=== PATIENT | female | born 1950 | race Caucasian/White ===

== ENCOUNTER 2016-06-25 12:15 | Observation (INO) | payer MEDICARE, BC ==
[~2016-06-25] VITALS: Ht 160 cm; Wt 77.0 kg
--- NOTE | ~2016-06-25 | HEMODYNAMI ---
PATIENT:FORTUNATO JONES MEDICAL RECORD: [id number] : 52 [id number] ADMISSION DATE: 06/25/16 Generatedon:06/26/201610:19 Patient name: FORTUNATO JONES Patient #: [id number] SSN: : 1950 Date of study: 06/26/2016 Page: Of Hemodynamic Procedure Report Patient Data Patient Demographics Procedure consent was obtained First Name: FORTUNATO Gender: Female Last Name: ROBERT : 1950 Middle Initial: MARIA L Age: 66 year(s) Patient #: [id number] Race: Additional ID: [id number] Contact details [address]: [address] [place] [address] State: [place] City: [place] Zip code: [address] Past Medical History Allergies Allergen Reaction Date Comments Reported Other allergy 06/26/2016 tetnus, ambien, toxoid Admission Admission Data Admission Date: 06/25/2016 Admission Time: 14:55 Room #: D.2125 Lab Results Lab Result Date: 06/26/2016 Lab Result Time: 0:00 Biochemistry Name Units Result Min Max Creatinine mg/dl 0.8 --(-*--)-- 0.6 1.3 CBC Name Units Result Min Max Hemoglobin g/dl 13.9 --(*---)-- 13.5 17.5 Procedure Procedure Types Cath Procedure Diagnostic Procedure LHC LHC w/Coronaries w/Grafts Procedure Description Procedure Date Procedure Date: 06/26/2016 Procedure Start Time: 9:43 Procedure End Time: 10:19 Procedure Staff Name Function Brayan Almodovar MD Performing Physician Dulce Espinoza RT Scrub Mami Vázquez RN Nurse Madelaine Mooney RT Monitor Procedure Data Cath Procedure Fluoroscopy Diagnostic fluoroscopy Total fluoroscopy Time: 11 time: 11 min min Diagnostic fluoroscopy Total fluoroscopy dose: 995 dose: 995 mGy mGy Contrast Material Contrast Material Type Amount (ml) Isovue 300 113 Entry Location Entry Primary Successful Side Size Upsize Upsize Entry Closure Succes sful Closure Location (Fr) 1 (Fr) 2 (Fr) Remarks Device Remarks Femoral Left 5 Fr 6 Fr artery Short Estimated blood loss: 10 ml Diagnostic catheters Device Type Used For End Catheter Placement Cordis 5Fr JL 4.0 Left Coronary Catheter (MP) Angiography Cordis 5Fr 3DRC Catheter Internal mammary (MP) arteriography Cordis 5Fr 3DRC Catheter SVG Angiography (MP) Cordis 5Fr 3DRC Catheter Right Coronary (MP) Angiography Cordis 5Fr Pigtail LV Angiography Catheter (MP) Procedure Complications No complications Procedure Medications Medication Administration Route Dosage Oxygen NC 2 l/min Lidocaine 2% added to field 20 0.9% NaCl I.V. 100 ml/hr Heparin Flush Bag added to field 2 bags (1000units/500ml NS) Versed I.V. 1 mg Fentanyl I.V. 50 mcg Versed I.V. 1 mg Fentanyl I.V. 50 mcg Versed I.V. 1 mg Fentanyl I.V. 50 mcg Heparin Bolus I.V. 5000 units Integrilin (Bolus I.V. 6.8 ml 2mg/ml) Versed I.V. 1 mg Fentanyl I.V. 50 mcg unlisted medication P.O. 20 mg Hemodynamics Rest HGB: 13.9 (g/dl) Heart Rate: 82 (bpm) Pressure Samples Time Site Value (mmHg) Purpose Heart Use Rate(bpm) 9:53 LV 139/15,20 EDP 82 9:54 AO 139/63(97) Pullback 89 9:54 LV 142/17,27 Pullback 89 Gradients Valve Time Site 1 Site 2 Mean SEP/DFP Peak To Heart Use (mmHg) (sec/min) Peak Rate (mmHg) (bpm) Aortic 9:54 LV AO 8 6 3 89 142/17,27 139/63(97) Calculations Valve P-P Mean Valve Index Valve Source Name Gradient Area Flow (cm2) Aortic 3 8 3 8 Snapshots Pre Cath Intra NCS Post Cath Vital Signs Time Heart Resp SPO2 etCO2 QG5bibz NIBP (mmHg) Rhythm Pain Sedation Rate (ipm) (%) (mmHg) (mmHg) Status Level (bpm) 9:29:45 71 15 97 0 0 147/89(123) NSR 0 (11) 10(A) , No pain 9:34:01 75 17 96 0 0 132/82(116) NSR 0 (11) 10(A) , No pain 9:38:11 83 15 98 0 0 132/85(126) NSR 0 (11) 10(A) , No pain 9:42:19 84 16 98 0 0 142/85(111) NSR 0 (11) 10(A) , No pain 9:46:35 82 17 96 0 0 131/78(114) NSR 0 (11) 9(A) , No pain 9:50:45 91 17 97 0 0 125/79(100) NSR 0 (11) 9(A) , No pain 9:54:53 92 18 97 0 0 126/79(99) NSR 0 (11) 9(A) , No pain 9:59:05 93 16 97 0 0 126/73(91) NSR 0 (11) 9(A) , No pain 10:03:14 91 16 97 0 0 126/71(106) NSR 0 (11) 9(A) , No pain 10:07:24 91 18 97 0 0 110/76(104) NSR 0 (11) 9(A) , No pain 10:11:26 94 17 97 0 0 129/83(102) NSR 0 (11) 9(A) , No pain 10:15:36 94 16 97 0 0 122/84(105) NSR 0 (11) 10(A) , No pain Medications Time Medication Route Dose Verified Delivered Reason Notes Effectiveness by by 9:32:29 Oxygen NC 2 Brayan Buffie used for l/min [facility]. Arpan blue MD 9:32:37 Lidocaine 2% added 20ml Brayan Brayan for local to vial [facility] anesthetic field MD CURRY 9:32:52 0.9% NaCl I.V. 100 Brayan Buffie Per physician ml/hr St. Arpan Vázquez RN, MD 9:39:07 Heparin Flush added 2 Brayan Brayan used for [facility] (1000units/500ml field MD CURRY NS) 9:39:14 Versed I.V. 1 mg Brayan Riyaie for sedation St. Arpan Vázquez RN, MD 9:39:37 Fentanyl I.V. 50 Brayan Buffie for sedation mcg [address] Arpan Vázquez RN, MD 9:43:31 Versed I.V. 1 mg Brayan Buffie for sedation St. Arpan Vázquez RN, MD 9:43:35 Fentanyl I.V. 50 Brayan Ritterie for sedation mcg [facility]. Arpan Vázquez RN, MD 9:46:42 Versed I.V. 1 mg Brayan Ritterie for sedation St. Arpan Vázquez RN, MD 9:46:47 Fentanyl I.V. 50 Brayan Ritterie for sedation mcg [facility]. Arpan Vázquez RN, MD 9:54:22 Heparin Bolus I.V. 5000 Brayan Ritterie for verifi ed units [facility]. Arpan Vázquez RN anticoagulation with dr MD dubois 9:58:01 Integrilin I.V. 6.8 Brayan Ritterie for (Bolus 2mg/ml) ml St. Arpan Vázquez RN antiplatelet MD therapy 10:02:15 Versed I.V. 1 mg Brayan Ritterie for sedation St. Arpan Vázquez RN, MD 10:02:19 Fentanyl I.V. 50 Brayan Ritterie for sedation mcg [facility]. Arpan Vázquez RN, MD 10:17:49 Xarelto P.O. 20 mg Brayan Bolaños for St. Arpan Vázquez RN anticoagulation MD Procedure Log Time Note 9:00:34 Dulce Espinoza RT(R) sent for patient. Start room use. 9:22:16 Diagnostic Cath Status : Elective 9:22:41 Time tracking: Regular hours 9:22:46 Plan of Care:Hemodynamics will remain stable., Cardiac rhythm will remain stable., Comfort level will be maintained., Respiratory function will remain adequate., Patient/ family verbilizes understanding of procedure., Procedure tolerated without complication., Recovers from procedure without complications.. 9:22:52 Patient received from Med II to CCL 1 Alert and oriented. Tansferred to table in Supine position. 9:22:53 Warm blankets applied, and manny hugger turned on for patient comfort. 9:22:53 Correct patient and procedure confirmed by team. 9:22:55 Signed procedure consent form obtained from patient. 9:22:56 ECG and BP/O2 sat monitors applied to patient. 9:28:41 Vital chart was started 9:28:42 Full Disclosure recording started 9:29:34 Rhythm: sinus rhythm 9:32:29 Oxygen 2 l/min NC was given by Mami Vázquez RN; used for procedure; 9:32:37 Lidocaine 2% 20ml vial added to field was given by Brayan Almodovar MD; for local anesthetic; 9:32:52 0.9% NaCl 100 ml/hr I.V. was given by Mami Vázquez RN; Per physician; 9:33:33 H&P Date Dictated: 06/26/2016 New H&P dictated by physician.. 9:33:34 Pre-procedure instructions explained to patient. 9:33:35 Pre-op teaching completed and patient verbalized understanding. 9:33:36 Family in waiting room. 9:33:58 Dictation# [id number] 9:34:01 Patient NPO since Midnight. 9:34:26 Patient allergic to Other allergytetnus, ambien, toxoid 9:34:33 Is the patient allergic to Iodine/contrast media? No. 9:34:34 Is patient on blood thinner?Yes 9:34:37 ACC The patient was administered the following blood thiners within the last 24 hours: ACCPlavix 9:34:43 Patient diabetic? No. 9:34:53 Previous problem with sedation/anesthesia? No ? 9:34:55 Snore? Yes 9:34:57 Sleep apnea? No 9:34:58 Deviated septum? No 9:34:58 Opens mouth fully? Yes 9:34:59 Sticks out tongue? Yes 9:35:01 Airway obstruction? No ? 9:35:04 Dentures? Yes IN 9:35:09 Pre procedure: left dorsailis pedis pulse 2+ Normal; easily identifiable; not easily obliterated 9:35:12 Patient pain scale 0/10 ?. 9:35:25 IV patent on arrival in left forearm with 0.9% NaCl at [facility]. 9:35:58 Lab Result : Creatinine 0.8 mg/dl 9:35:58 Lab Result : Hemoglobin 13.9 g/dl 9:36:01 Lab results completed and on chart. 9:36:06 Left groin area was prepped with chlora-prep and draped in sterile fashion 9:36:07 Alarms reviewed by R. N. 9:36:08 Sharps counted by scrub and verified by R.N. 9:36:13 Use device set Femoral Dx 9:36:14 Acist Syringe opened to sterile field. 9:36:15 Bag Decanter opened to sterile field. 9:36:15 Cardinal Cath Pack opened to sterile field. 9:36:16 Terumo 5Fr [place] Sheath opened to sterile field. 9:36:16 St Dominic 260cm J .035 wire opened to sterile field. 9:36:17 Acist Hand Control opened to sterile field. 9:36:18 Acist Manifold opened to sterile field. 9:36:18 Cordis Infinity 5Fr Multipack catheter opened to sterile field. 9:36:19 Tegaderm 4 x 4 opened to sterile field. 9:36:26 Final Timeout: patient, procedure, and site verified with staff and physician. All members of the team are in agreement. 9:36:28 Left groin site verified by team. 9:36:31 Physical assessment completed. ASA score P 2 - A patient with mild systemic disease as per Brayan Almodovar MD. 9:36:33 Sedation plan: IV Moderate Sedation Versed, Fentanyl 9:39:07 Heparin Flush Bag (1000units/500ml NS) 2 bags added to field was given by Brayan Almodovar MD; used for procedure; 9:39:14 Versed 1 mg I.V. was given by Mami Vázquez RN; for sedation; 9:39:37 Fentanyl 50 mcg I.V. was given by Mami Vázquez RN; for sedation; 9:43:04 Zero performed for pressure channel P1 9:43:11 Zero performed for pressure channel P1 9:43:17 Procedure started. 9:43:21 Local anesthetic to left femerol artery with Lidocaine 2% by Brayan Almodovar MD.INITIAL ACCESS ONLY 9:43:31 Versed 1 mg I.V. was given by Mami Vázquez RN; for sedation; 9:43:35 Fentanyl 50 mcg I.V. was given by Mami Vázquez RN; for sedation; 9:44:01 A 5 Fr sheath was inserted into the Left Femoral artery 9:45:42 A Cordis 5Fr JL 4.0 Catheter (MP) was advanced over the wire and used for Left Coronary Angiography. 9:46:42 Versed 1 mg I.V. was given by Mami Vázquez RN; for sedation; 9:46:47 Fentanyl 50 mcg I.V. was given by Mami Vázquez RN; for sedation; 9:48:30 Catheter removed. 9:48:51 A Cordis 5Fr 3DRC Catheter (MP) was advanced over the wire and used for Internal mammary arteriography. Not grafted. 9:51:16 A Cordis 5Fr 3DRC Catheter (MP) was advanced over the wire and used for SVG Angiography.To Circ 9:51:30 A Cordis 5Fr 3DRC Catheter (MP) was advanced over the wire and used for Right Coronary Angiography. 9:52:35 Catheter removed. 9:52:40 A Cordis 5Fr Pigtail Catheter (MP) was advanced over the wire and used for LV Angiography. 9:52:58 Medtronic Launcher 6Fr JR 4.0 guide catheter opened to sterile field. 9:53:20 Garcia [place] 300cm 0.014 guide wire opened to sterile field. 9:53:21 Awdio BasixCompak Inflation Kit opened to sterile field. 9:54:10 Catheter removed. 9:54:22 Heparin Bolus 5000 units I.V. was given by Mami Vázquez RN; for anticoagulation; verified with dr dubois 9:54:31 Sheath upsized to a 6 Fr Short. 9:56:01 6 Fr JR 4.0 guide catheter was inserted over the wire 9:57:24 [place] wire advanced. 9:58:01 Integrilin (Bolus 2mg/ml) 6.8 ml I.V. was given by Mami Vázquez RN; for antiplatelet therapy; 10:00:59 Wire removed. unable to cross lesion. 10:01:09 Garcia Whisper J 300cm 0.014 guide wire opened to sterile field. 10:02:15 Versed 1 mg I.V. was given by Mami Vázquez RN; for sedation; 10:02:19 Fentanyl 50 mcg I.V. was given by Mami Vázquez RN; for sedation; 10:03:57 The NC Emerge OTW 4.5 x 12 balloon was advanced and then removed because of failure to cross lesion 10:06:33 Garcia Whisper J 300cm 0.014 guide wire opened to sterile field. 10:06:51 2nd Whisper wire advanced. 10:09:44 The [place] Rapid Diagnostek [place] 3.0 X 12 balloon was advanced and then removed because 10:09:56 Wire removed. 10:09:57 Guide catheter removed. 10:10:07 Cordis 6Fr Exoseal opened to sterile field. 10:10:10 Procedure ended.(Physican Out) 10:10:41 Fluoroscopy time 11.00 minutes. 10:10:46 Flurop Dose total: 995 10:10:46 Fluoroscopy dose: 995 mGy 10:10:51 Contrast amount:Isovue 300 113ml. 10:10:53 Sharps counted by scrub and verified by R.N. 10:10:54 Insertion/operative site no bleeding no hematoma. 10:10:57 Post-op/insertion site Left Femoral artery dressed using a 4 x 4 and Tegaderm. 10:11:03 Post left femerol artery:stable, clean and dry 10:11:04 Post Procedure Pulses reassessed and unchanged 10:11:08 Post-procedure physical assessment completed. ASA score P 2 - A patient with mild systemic disease as per Brayan Almodovar MD. 10:11:10 Post procedure rhythm: unchanged. 10:11:13 Estimated blood loss: 10 ml 10:11:15 Post procedure instruction explained to patient.Patient verbalizes understanding. 10:11:15 Patient needs reinforcement of post procedure teaching. 10:11:26 Procedure type changed to Cath procedure, Diagnostic procedure, LHC, LHC w/Coronaries w/Grafts 10:11:32 Procedure Complication : No complications 10:11:35 See physician's report for complete and final results. 10:12:12 Terumo 6Fr [place] Sheath opened to sterile field. 10:12:30 Procedure and supply charges have been captured, reviewed, submitted and are correct. 10:17:49 Xarelto 20 mg P.O. was given by Mami Vázquez RN; for anticoagulation; 10:18:54 Vital chart was stopped 10:18:58 Report given to PCU. 10:19:02 Patient transfered to PCU with Bed. 10:19:04 Procedure ended. 10:19:04 Full Disclosure recording stopped 10:19:27 End room use (Document Last) Intervention Summary Intervention Notes Time ActionType Lesion and Equipment Action# Pressure Duration Attributes Used 10:03:57 Discard NC Emerge Balloon OTW 4.5 x 12 balloon 10:09:44 Discard [place] Balloon Sci [place] 3.0 X 12 balloon Device Usage Item Name Manufacture Quantity Catalog Number Hospital Part Current Mini mal Lot# / Charge Number Stock Stock Serial# Code Acist Acist 1 02764 516451 664444 571674 20 Pug Pharm Bag Microtek 1 2002S 055035 61875 100454 5 Dec[employer] Cardinal Cardinal 1 [id number] 269245 65782 156021 5 Cath Pack Health Terumo 5Fr Terumo 1 [id number] 432796 921737 062436 [address] St Dominic 1 527316 250392 569392 576452 30 260cm J .035 wire Acist Hand Acist 1 79546 731547 882102 372442 5 Control Medical Systems Inc Acist Acist 1 20480 348915 911792 979241 5 Manifold Medical Systems Inc Cordis Cardinal 1 [id number] 965572 67460 611961 30 Infinity Health 5Fr Multipack catheter Tegaderm 4 3M 1 1626W 350565 595797 866173 5 x 4 Cordis 5Fr Cardinal 1 710644 5 JL 4.0 Health Catheter (MP) Cordis 5Fr Cardinal 1 971954 5 3DRC Health Catheter (MP) Cordis 5Fr Cardinal 1 442652 5 Pigtail Health Catheter (MP) Medtronic Medtronic 1 [id number] 588592 98260 685873 1 Launcher 6Fr JR 4.0 guide catheter Garcia Garcia 1 [id number] 829281 208519 852343 1 [place] Vascular 300cm 0.014 guide wire Merit Merit 1 QC1195 327081 243488 395197 15 BasixCompak Medical Inflation Kit Garcia Garcia 2 [id number] 468096 918422 480004 5 Whisper J Vascular 300cm 0.014 guide wire NC Emerge [place] 1 [id number] 872062 107073 651448 5 [id number] OTW 4.5 x Scientific 12 balloon [place] Sci [place] 1 [id number] 135254 915084 455504 1 [id number] Augusta Scientific 3.0 X 12 balloon Cordis 6Fr Cardinal 1 EX600 220989 558474 665827 10 Exoseal Health Terumo 6Fr Terumo 1 [id number] 165949 644806 762752 40 [place] Sheath Signature Audit Jerome Stage Time Signature Unsigned Intra-Procedure 06/26/2016 Madelaine 10:19:47 AM Counts RT(R) Signatures Monitor : Madelaine Signature : Counts RT Date : Time : [address] [address]
[~2016-06-25 12:15] MED LIST: ASPIRIN325 MG PO; CARAFATE1 G PO; EFFIENT10 MG PO; FISH OIL 1,0001 CA1 PO; IMDUR60 MG PO; MOBIC7.5 MG PO; NEXIUM40 MG PO; PREDNISONE5 MG PO; PRILOSEC20 MG PO; RANEXA500 MG PO; ZANAFLEX4 MG PO
[2016-06-25 12:46] LABS: BASOPHILS 0.4 % (0.0-2.0); EOSINOPHILS 6.2 % (0-7); HEMATOCRIT 42.4 % (36.0-48.0); HEMOGLOBIN 14.2 g/dL (12-16); IMMATURE GRANULOCYTES 0.1 % (0-5); MCH 32.2 pg (26.0-34.0); MCHC 33.5 g/dL (31.0-37.0); MCV 96.1 fL (80.0-100.0); MEAN PLATELET VOLUME 9.1 fL (7.4-10.4); MONOCYTES 8.1 % (2-11); NEUTROPHILS 47.2 % (40-80); RBC 4.41 10x6/uL (4.00-5.40); RDW 14.5 % (11.5-14.5); WBC 6.8 10x3/uL (4.8-10.8)
[2016-06-25 12:53] LABS: PLATELET COUNT 285 10x3/uL (130-400)
[2016-06-25 13:03] LABS: ALBUMIN 3.8 g/dL (3.4-5.0); ALKALINE PHOSPHATASE 102 U/L (46-116); ALT (SGPT) 36 U/L (10-68); BILIRUBIN - TOTAL 0.41 mg/dL (0.2-1.3); CALC OSMOLALITY 277 mosm/kg (275-300); CARBON DIOXIDE 31.3 mmol/L (21.0-32.0); CHLORIDE - SERUM 102 mmol/L (98-107); CREATININE - SERUM 0.8 mg/dL (0.6-1.3); GLUCOSE 105 mg/dL (74-106); POTASSIUM - SERUM 3.9 mmol/L (3.5-5.1); PROTEIN - SERUM 7.2 g/dL (6.4-8.2); SODIUM 140 mmol/L (136-145); UREA NITROGEN 11 mg/dL (7-18); eGFR NON AFRICAN AMERICAN 76 mL/min (90-120)
[2016-06-25 13:13] LABS: CHOL - HDL RATIO 2.8 ratio (2.3-4.1); CHOLESTEROL, TOTAL 146 mg/dL (0-200); CKMB 0.7 U/L (0.0-3.6); CREATINE KINASE 80 UL (21-215); HDL CHOLESTEROL 53 mg/dL (32-96); LDL CHOLESTEROL 64 mg/dL (0-100); LDL-HDL RATIO 1.2 ratio (1.5-3.5); TRIGLYCERIDE 149 mg/dL (30-200)
[2016-06-25 13:14] LABS: TROPONIN-I < 0.017 ng/mL (0.000-0.060)
[2016-06-25 15:56] VITALS: Ht 160 cm; Wt 77.0 kg
--- NOTE | 2016-06-25 15:56 | NUR ---
RECEIVED PT TO ROOM 2124 VIA W/C IN STABLE CONDITION AAOX4 UP AD OMKAR DENIES ANY PAIN AT THIS TIME NAD NOTED
[2016-06-25] MEDS ORDERED: BAYER CHEWABLE81 MG PO (16:17)
[2016-06-25] MEDS ORDERED: LYRICA50 MG PO (16:19)
[2016-06-25] MEDS ORDERED: ISOSORBIDE MONO60 M1 PO (16:19)
[2016-06-25] MEDS ORDERED: PROVENTIL HFA6.7 GM INH (16:20)
[2016-06-25] MEDS ORDERED: LIPITOR40 MG PO (16:21)
[2016-06-25] MEDS ORDERED: NITROMIST8.5 GM SL (16:26)
[2016-06-25 19:48] VITALS: BP 126/76
--- NOTE | 2016-06-25 20:00 | NUR ---
PT RESTING IN BED. ALERT/ORIENTED. SR PER TELEMETRY. O2 @ 2L/NC AVAILABLE, BUT PT CURRENTLY ON ROOM AIR. REVIEWED PLAN OF CARE. CALL LIGHT IN REACH. PT PLANS TO WALK THE HALLWAY UNTIL SHE DOES NOT FEEL TIRED.
--- NOTE | 2016-06-25 22:07 | NUR ---
HS MEDS HAVE BEEN GIVEN. NO C/O CHEST PAIN OR DISCOMFORT. SR PER TELEMETRY. PT WALKING IN THE HALLWAY.
[2016-06-26 00:47] VITALS: BP 117/51
--- NOTE | 2016-06-26 03:04 | NUR ---
SR PER TELEMETRY. NO REPORTS OF PAIN OR DISCOMFORT. 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
[2016-06-26 03:41] VITALS: BP 122/77
--- NOTE | 2016-06-26 07:18 | NUR ---
PT SITTING UP IN BED DENEIS NEEDS WILL CONT TO MONITOR.
[2016-06-26 08:16] VITALS: BP 146/79
[2016-06-26 09:17] LABS: BASOPHILS 0.5 % (0.0-2.0); EOSINOPHILS 7.5 % (0-7); HEMATOCRIT 41.8 % (36.0-48.0); HEMOGLOBIN 13.9 g/dL (12-16); IMMATURE GRANULOCYTES 0.1 % (0-5); LYMPHOCYTES 39.9 % (15-50); MCH 32.2 pg (26.0-34.0); MCHC 33.3 g/dL (31.0-37.0); MCV 96.8 fL (80.0-100.0); MEAN PLATELET VOLUME 9.2 fL (7.4-10.4); MONOCYTES 8.5 % (2-11); NEUTROPHILS 43.5 % (40-80); PLATELET COUNT 276 10x3/uL (130-400); RBC 4.32 10x6/uL (4.00-5.40); RDW 14.7 % (11.5-14.5); WBC 7.3 10x3/uL (4.8-10.8)
[2016-06-26 09:21] LABS: CALC OSMOLALITY 280 mosm/kg (275-300); CHLORIDE - SERUM 105 mmol/L (98-107); CREATININE - SERUM 0.8 mg/dL (0.6-1.3); GLUCOSE 104 mg/dL (74-106); POTASSIUM - SERUM 4.2 mmol/L (3.5-5.1); SODIUM 141 mmol/L (136-145); UREA NITROGEN 13 mg/dL (7-18); eGFR NON AFRICAN AMERICAN 76 mL/min (90-120)
--- NOTE | 2016-06-26 10:36 | NUR ---
PT BACK FROM FLOWER SHOP MANAGER. PT SLEEPY BUT ALERT AND ORIENTED. LEFT GROIN SITE WNL DRESSING CDI. VS WNL. AT BEDSIDE. TELE BACK ON. PT FLAT FOR 4 HOURS.
[2016-06-26] MEDS ORDERED: XARELTO20 MG PO (11:53)
[2016-06-26 12:21] VITALS: BP 111/64
--- NOTE | 2016-06-26 12:26 | NUR ---
PT VS STILL WNL. PT L GROIN SITE STILL WNL WILL CONT TO MONITOR.
--- NOTE | 2016-06-26 13:07 | NUR ---
PT SITE STILL WNL VS STILL WNL. PT STILL LAYING FLAT. WILL CONT TO MONITOR.
--- NOTE | 2016-06-26 13:55 | NUR ---
WENT OVER DC PAPERWORK WITH PT PT VERBALIZES UNDERSTANDING. DC PIV WITH CATHETER TIP INTACT. DC TELE. PT STILL LAYING FLAT UNTIL BEDREST UP.
--- NOTE | 2016-06-26 14:28 | NUR ---
PT BEDREST HAS COMPLETED. LEFT GROIN STILL WNL. PT VS STILL WNL. DC HOME. PRODUCT INTRODUCTION MANAGER WHEELED PT OUT
--- NOTE | 2016-06-28 09:52 | OP ---
PATIENT NAME: FORTUNATO JONES MEDICAL RECORD: [id number] :52 LOCATION:D.M2 D.2125 ADMISSION DATE:06/25/16 SURGEON: SRINIVASA RODRÍGUEZ MD DATE OF OPERATION: 06/26/2016 PROCEDURE: Left heart catheterization, selective coronary angiography, left femoral artery approach. CATHETERS: A 5-Swedish sheath, 5/4 left and right Jose, 5/4 pig. We then proceeded to a possible intervention after the procedure was finished. FINDINGS: Left ventriculography in 30-degree OBRIEN view: Normal wall motion and normal systolic function. CORONARY ANATOMY: Left main: Left main is free of disease. LAD: medium sized LAD that did not quite reach the apex. This has previously placed stents that were patent. Small septal branch that has an ostial stenosis of 80%. CIRCUMFLEX: Totally occluded. RIGHT CORONARY ARTERY: Rudimentary, free of disease. SAPHENOUS VEIN GRAFT TO THE CIRCUMFLEX: This is patent and fills a large left circumflex system, the previously placed stent do bypass itself. This appears to be somewhat tapered towards the distal end. With a questionable thrombus formation, we placed a Avilla XT and a alyssa wire and a second Avilla XT to the stent and then inflated up towards the questionable thrombus. At this point in time, the patient was given heparin and Integrilin. Repeat ____ showed some small resolution of thrombus, then the procedure terminated. The patient had the sheath was closed with ExoSeal device. We will continue Xarelto for 4-6 weeks. We could consider a repeat study to make sure resolution of thrombus at that time. TRANSINT:[id number] Voice Confirmation ID: [id number] DOCUMENT ID: [id number] SRINIVASA RODRÍGUEZ MD at 0952 CC: [id number] DICTATION DATE: 06/26/16 1017 PIPE RACKER: 06/26/16 1522 DIS IN 06/26/16 [place] [id number] [place] [id number]
--- NOTE | 2016-06-28 09:52 | HP ---
PATIENT: FORTUNATO JONES MEDICAL RECORD: [id number] ACCOUNT: [id number] LOCATION:[address] : 52 ADMISSION DATE: 06/25/16 HISTORY AND PHYSICAL EXAMINATION HISTORY OF PRESENT ILLNESS: A 66-year-old lady with a history of coronary artery disease, status post bypass grafting as well as multiple interventions, LV function is preserved, on combination of long-acting nitrates and statin therapy, continues to smoke about a pack a day, was admitted with her typical chest pain that has been ongoing for 2 weeks. She had upper respiratory tract infection approximately 4 weeks ago. ECG is without acute changes. Enzymes are negative and admitted for further evaluation. PAST MEDICAL HISTORY: Includes: 1. History of coronary artery disease. 2. Clinically, obstructive pulmonary disease. 3. 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 4. Dyslipidemia. 5. Gastroesophageal reflux disease. MEDICATIONS: Include Nexium 40 q. day, Lyrica 50 t.i.d., aspirin 81 q. day, Imdur 60 daily, atorvastatin 40 q.day, Effient 10 q. day, and albuterol 2 puffs q.4 p.r.n. ALLERGIES: TETANUS, DIPHTHERIA, AMBIEN. 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 Smokes about a pack a day. She is able to take her IADLs. REVIEW OF SYSTEMS: The patient reports easy bruising but reports no swollen glands. The patient reports no fever, no night sweats, no significant weight gain, no significant weight loss. No significant exercise tolerance. The patient reports no dry eyes, no irritation, no vision change. Patient reports no difficulty hearing and no ear pain. Patient reports no frequent nose bleeds or nose and sinus problems. Patient reports on arm pain on exertion. No shortness of breath while lying down. No history of heart murmur. Patient reports no cough, no wheezing or coughing up blood. Patient reports no abdominal pain, no vomiting. Normal appetite. No diarrhea and not vomiting blood. No nausea and no constipation. Patient reports no incontinence. No difficulty urinating. No hematuria. No increased frequency. Patient reports no muscle aches. No weakness, no arthralgias, no back pain. No swelling of the extremities. Patient reports no abnormal mole, no jaundice, no rashes. Reports no loss of consciousness. No weakness and no numbness. No seizures, dizziness, or headaches. The patient reports no depression, no sleep disturbance, feeling safe in a relationship and no alcohol abuse. Patient reports on fatigue. Reports no runny nose or sinus pressure. No itching, no hives, and no frequent sneezing. PHYSICAL EXAMINATION: GENERAL: Pleasant female, in no acute distress. VITAL SIGNS: Blood pressure 146/79, pulse 71 and regular. HEENT: Normocephalic and atraumatic. NECK: No bruises are noted. HEART: Regular. HISTORY AND PHYSICAL [id number] FORTUNATO JONES LUNGS: Slightly prolonged expiratory phase with expiratory wheezes. ABDOMEN: Soft, nontender. EXTREMITIES: Pulse is actually well preserved, 2+, with no edema. NEUROLOGIC: Grossly intact. DIAGNOSTIC DATA: ECG without acute change. IMPRESSION: Recurrent angina, we will plan within 6 months window of restenosis. PLAN: Diagnostic angiography, intervention based on above. TRANSINT:[id number] Voice Confirmation ID: [id number] DOCUMENT ID: [id number] SRINIVASA RODRÍGUEZ MD at 0952 CC: [id number] DICTATION DATE: 06/26/16 0908 SALES PLANNING MANAGER: 06/26/16 0947 DIS IN 06/26/16 [place] [id number] [place] [address]
--- NOTE | 2016-08-12 14:36 | DS ---
PATIENT:FORTUNATO JONES :52 MEDICAL RECORD: [id number] DISCHARGE SUMMARY ADMISSION DATE: 06/25/16 DISCHARGE DATE: 06/26/16 DISCHARGE DIAGNOSES: 1. Acute coronary syndrome. 2. Obstructive pulmonary disease. 3. Dyslipidemia. 4. Gastroesophageal reflux disease. BRIEF HISTORY AND HOSPITAL COURSE: She underwent a diagnostic angiography, which showed mild restenosis versus thrombus on a stent. She underwent balloon angioplasty to this and discharged home in good condition. DIET: AHA diet. ACTIVITY: As tolerated. Smoking cessation was strongly recommended. TRANSINT:[id number] Voice Confirmation ID: [id number] DOCUMENT ID: [id number] SRINIVASA RODRÍGUEZ MD at 1436 CC: [id number] DICTATION DATE: 08/10/16 142 JERKER: 08/11/16 0348 DIS IN 06/26/16 [place] [address] [place] [address]
== END 2016-06-26 14:28 | disposition home or self-care (01) ==
LOC: D.ER 12:15 → D.M2 14:55 → OBSVTIME 14:55 → D.M2 06-26 14:28
PROVIDERS: Emergency Medicine; ADMIT Internal Medicine Interventional Cardiology
DX: I25.10 Atherosclerotic heart disease of native coronary artery without angina pectoris (principal); Z95.1 Presence of aortocoronary bypass graft; J44.9 Chronic obstructive pulmonary disease, unspecified; E78.5 Hyperlipidemia, unspecified; K21.9 Gastro-esophageal reflux disease without esophagitis; Z72.0 Tobacco use

== ENCOUNTER 2016-08-26 06:08 | Day surgery (SDC) | payer MEDICARE, BC ==
[2016-08-25 16:11] LABS: BASOPHILS 0.5 % (0.0-2.0); EOSINOPHILS 3.8 % (0-7); HEMATOCRIT 42.6 % (36.0-48.0); HEMOGLOBIN 14.5 g/dL (12-16); IMMATURE GRANULOCYTES 0.1 % (0-5); LYMPHOCYTES 32.9 % (15-50); MCV 96.8 fL (80.0-100.0); MONOCYTES 7.2 % (2-11); NEUTROPHILS 55.5 % (40-80); PLATELET COUNT 257 10x3/uL (130-400); WBC 7.6 10x3/uL (4.8-10.8)
[2016-08-25 16:20] LABS: APPEARANCE HAZY (CLEAR); COLOR YELLOW (YELLOW)
[2016-08-25 16:21] LABS: BILIRUBIN NEGATIVE (NEGATIVE); GLUCOSE NEGATIVE (NEGATIVE); KETONE NEGATIVE (NEGATIVE); LEUKOCYTE ESTERASE TRACE (NEGATIVE); NITRITE POSITIVE (NEGATIVE); PROTEIN NEGATIVE (NEGATIVE); UROBILINOGEN NORMAL (NORMAL)
[2016-08-25 16:23] LABS: BACTERIA MANY /hpf (NONE SEEN); EPITHELIAL CELLS OCC /hpf (0-5); RED CELLS - URINE OCC /hpf (0-5); WHITE CELLS - URINE 0-5 /hpf (0-5)
[2016-08-25 16:32] LABS: CALCIUM 8.9 mg/dL (8.5-10.1); CARBON DIOXIDE 27.7 mmol/L (21.0-32.0); CREATININE - SERUM 0.9 mg/dL (0.6-1.3); POTASSIUM - SERUM 3.7 mmol/L (3.5-5.1)
[~2016-08-26 06:08] MED LIST changes: +BAYER CHEWABLE81 MG PO; +ISOSORBIDE MONO60 M1 PO; +LIPITOR40 MG PO; +LYRICA50 MG PO; +NITROMIST8.5 GM SL; +PROVENTIL HFA6.7 GM INH; +XARELTO20 MG PO
[2016-08-26 06:14] VITALS: BP 128/58; BMI 29.8
--- NOTE | 2016-08-26 08:13 | HP ---
PATIENT: FORTUNATO JONES MEDICAL RECORD: [id number] ACCOUNT: [id number] LOCATION:[facility] : 52 ADMISSION DATE: 08/26/16 HISTORY AND PHYSICAL EXAMINATION CHIEF COMPLAINT: Back pain. HISTORY OF PRESENT ILLNESS: This is a pleasant white female, who presented to our office with complaints of back pain, radicular into her right leg and with rate pain in right leg of 10/10, has a limp. She has been to pain management for injections. She has also been to ____ Dr. Regino Pinto and has been to see Dr. Pagan for evaluation of her right kidney. She has been cleared by Dr. Stokes medically due to her 17 stents to have a lumbar laminectomy. PAST MEDICAL HISTORY: Significant for the aforementioned 17 stents bypass surgery, quadruple bypass surgery, left shoulder surgery, broken jaw, hysterectomy, tonsillectomy, adenoids and uvula surgery. FAMILY HISTORY: Significant for her father dying at the age of 62, cancer. Her mother at the age of 84 with heart problems. SOCIAL HISTORY: She is . She smokes a pack per day. ALLERGIES: TETANUS. CURRENT MEDICATIONS: Melatonin, Effient 10 mg for her anticoagulant, Lyrica, aspirin, isosorbide, and atorvastatin, mouth full. REVIEW OF SYSTEMS: She denies any recent chest pain, shortness of breath or weight changes. PHYSICAL EXAMINATION: HEENT: She is normocephalic. Pupils are equal, reactive to light. CHEST: Clear bilaterally to auscultation. HEART: S1 and S2. ABDOMEN: Soft. Bowel sounds are present. EXTREMITIES: Dorsiflexion and plantar flexion are intact. She has a horrific limp to the right side, difficult for her to walk or comfortable standing. IMPRESSION: Right side L5-S1; lumbar spinal stenosis. PLAN: Right L5-S1 micro disc. The risk and benefits of surgery have been explained to her in detail. Risks include bleeding, failure to relieve symptoms, problems with anesthesia and . Time was allowed for questions, questions were answered. The patient wishes to proceed with surgery. TRANSINT:[id number] Voice Confirmation ID: [id number] DOCUMENT ID: [id number] Dictated By: JOSSY SINGH I have interviewed/examined the above patient and agree with these documented findings. HISTORY AND PHYSICAL [id number] FORTUNATO JONES IGOR MD at 0933 at 0813 CC: [id number] DICTATION DATE: 08/25/16 1456 RETAIL MANAGEMENT KEYHOLDER: 08/25/16 1615 [facility] [address] [facility]
--- NOTE | 2016-08-26 16:09 | NUR ---
1200 IV DC WITH CATHER TIP INTACT
--- NOTE | 2016-08-26 16:19 | NUR ---
VS TAKEN AND PLACE ON POST SHEET AND PLACE IN CHART
--- NOTE | 2016-09-17 09:33 | OP ---
PATIENT NAME: FORTUNATO JOHN MEDICAL RECORD: [id number] :52 LOCATION:D.OPS ADMISSION DATE: SURGEON: ANNA MARIE YANEZ MD DATE OF OPERATION: 08/26/2016 PREOPERATIVE DIAGNOSIS: L5-S1, right side herniated disc. POSTOPERATIVE DIAGNOSIS: L5-S1, right side herniated disc. PROCEDURE: L5-S1 microdiscectomy. In this particular case, we used microsurgical technique and minimally invasive technique. We used the [employer] micro tube set. SURGEON: Anna Marie Yanez MD. ANESTHESIA: General. POSITION: Prone over the Yovanny frame. DRAINS: No drain was used. ESTIMATED BLOOD LOSS: Less than 50. SPECIMEN: Sent disc for permanent pathology. TIMEOUT: Strictly observed. During timeout, we verified the patient identity, correct side and site, correct patient position, correct implants and correct imaging. DISPOSITION: Postoperative care unit. INDICATION OF THIS PROCEDURE: Mrs. Fortunato John is a well-known patient of neurological surgical service. She is a 66-year-old female with significant right-sided radicular pain. Imaging study was done with CT myelogram of the lumbar spine, which showed a large disc on the right side between L5-S1. That large disc was causing impingement on the nerve root of S1 on the right side. After seeing and examined the patient in the office, we discussed her options of care, discussed her most likely the conservative treatment did not work for her; therefore, a surgical intervention is considered. She understood all the risks and benefits of surgery. She also understood prognosis outcome and realistic expectations after minimally invasive discectomy and had opportunity to ask questions, questions answered and decided to go forward and have this procedure done. OPERATIVE REPORT IN DETAIL: On 08/26/2016, the patient was brought to the OR by the anesthesia team. All the EKG leads, pulse ox lead, blood pressure cuff was placed by anesthesia. Under satisfactory general anesthesia, the patient was intubated. The tube was secured in the corner of the mouth. With that done, the patient was gently turned to prone position over the Yovanny frame. Her face and eyes were padded and protected. Her knees and ankles were padded and protected. Her arms would not elevate, abduct or hyperextend more than 90 degrees and the shoulders and her elbows were padded and protected. With all that done, we brought the C-arm fluoroscopic x-ray machine to the operative field. C-arm was also draped in a sterile fashion. We localized the entry point. The right point was on the right side between L5-S1. We injected the OPERATIVE REPORT [id number] FORTUNATO JOHN skin with lidocaine with epinephrine. We made a small incision. We dilated all the way the tubes to 18 mm diameter and then we docked 5 cm deep by 18 mm diameter in the laminar facet junction between L5-S1 on the right side. With the 2 docks in placed, we brought the microscope into the operative field. With the microscope, we removed the soft tissue across the lamina. We saw the lamina at L5 using high-speed drill Midas Godwin. We drilled lamina and ligamentum flavum and then drilling just in the mid aspect of the facet, we opened the ligamentum flavum, we saw the nerve root of S1 coming down. Gently retracting the nerve root, we saw very large veins from the epidural vein complex, which were coagulated using bipolar and then we saw the disc herniation underneath the nerve root of S1. Gently and carefully retracting the S1 nerve root, we incised the disc with 15-blade and then removed the disc in a piecemeal fashion with pituitary rongeurs and down biting curette such as Coview curette. With all the disc space flat, we coagulated the epidural veins ___ solution. We applied 80 mg of Depo-Medrol with Marcaine and then we opened the foramen dorsally with a Kerrison 4 and 5 mm, freeing the nerve root of S1 completely. With that done, we irrigated the surgical field now copiously with antibiotic solution. We removed the tube. We injected ____ Marcaine plain as well. Closed the fascia with 2-0 Vicryl, ____ subcutaneous tissue with 3-0 Vicryl and the skin itself was closed in subcuticular fashion using 3-0 Vicryl on diagonal in interrupted fashion. At the end of procedure, instruments, sponge, and cottonoid counts were correct times 2. We cleaned the incision with wet-to-dry sponge and then we placed Dermabond to seal the incision. TRANSINT:[id number] Voice Confirmation ID: [id number] DOCUMENT ID: [id number] ANNA MARIE YANEZ MD at 0933 CC: [id number] DICTATION DATE: 08/26/16 0906 RAND MAKER: 08/26/16 1146 [facility] 08/26/16 [place] [id number] [place] [address]
[2016-12-28] MEDS ORDERED: EFFIENT10 MG PO (13:00)
== END 2016-08-26 12:15 | disposition home or self-care (01) ==
LOC: D.OPS 06:08
PROVIDERS: Specialist
DX: M51.27 Other intervertebral disc displacement, lumbosacral region (principal); F17.200 Nicotine dependence, unspecified, uncomplicated; I25.10 Atherosclerotic heart disease of native coronary artery without angina pectoris; Z95.1 Presence of aortocoronary bypass graft; Z95.5 Presence of coronary angioplasty implant and graft; J44.9 Chronic obstructive pulmonary disease, unspecified; K21.9 Gastro-esophageal reflux disease without esophagitis

== ENCOUNTER 2016-09-04 12:19 | Inpatient (IN) | payer MEDICARE, BC ==
[~2016-09-04] VITALS: Ht 160 cm; Wt 76.2 kg
--- NOTE | ~2016-09-04 | EC ---
PATIENT:FORTUNATO JONES DATE OF SERVICE: 09/04/16 SEX: F MEDICAL RECORD: [id number] DATE OF : [birth year] [facility] AGE OF PAT[facility]: 66 ADMISSION DATE: 09/04/16 REFERRING PHYSICIAN: INTERPRETING PHYSICIAN: RIK COOPER MD ECHOCARDIOGRAM REPORT ECHO CHARGES 4 ECHO COMPLETE CLINICAL DIAGNOSIS: CHEST PAIN,SOB,POSSIBLE PE HX OF CAD/CABG/MULTIPLE STENTS ECHOCARDIOGRAPHIC MEASUREMENTS (adult normal given) AC root (d.<3.7cm) 3.3 LV Septum d (<1.2 cm> 1.4 Valve Excursion 1.3 LV Septum (systole) 1.7 Left Atria (s.<4.0cm> 3.3 LVPW d(<1.2cm) 1.6 RV (d.<2.3cm) 3.8 LVPW (sytole) 1.8 LV diastole(<5.6CM) 4.4 MV E-F(>70mm/sec) LV systole 2.2 LVOT Diameter 1.5 MV exc.(>10mm) 1.8 Est.ejection fraction (50-75%) Pericardial Effusion N DOPPLER: LVIT A 114 E 90.0 LA RVSP 36 LVOT 105 AOP1/2T Asc. Ao 183 RVOT 116 RA PA 150 AV Gradient Peak 13.36 AV Mean 5.91 AV Area 1.5 MV Gradient Peak 5.9 MV Mean 2.04 MV Area COMMENTS: Senior Solutions Engineer: Wesley SÁNCHEZ Senior Tax Accountant:Kalpana Almodovar TAPE# PACS DATE OF SERVICE: 09/07/2016 Echocardiogram FINDINGS: 1. Left ventricular chamber size is within normal limits. Left ventricular systolic function is normal. Overall ejection fraction estimated at 55%. 2. Left atrium, right atrium, and right ventricular chamber sizes are within normal limits. 3. Valvular structures have normal structure and motion. ECHOCARDIOGRAM REPORT [id number] FORTUNATO JONES 4. Doppler interrogation reveals mild mitral regurgitation, mild tricuspid regurgitation. No other valvular insufficiency or stenosis and pulmonary systolic pressure is estimated at 36 mmHg. 5. No evidence of pericardial effusion or left ventricular thrombus. TRANSINT:[id number] Voice Confirmation ID: [id number] DOCUMENT ID: [id number] RIK COOPER MD CC: [id number] DICTATION DATE: 09/07/16 6197 DRAFTER PLUMBING: 09/08/16 0302 DIS IN 09/07/16 [facility] [address] [place]
[2016-09-04 12:57] LABS: BASOPHILS 0.4 % (0.0-2.0); EOSINOPHILS 0.3 % (0-7); HEMATOCRIT 42.6 % (36.0-48.0); HEMOGLOBIN 14.3 g/dL (12-16); IMMATURE GRANULOCYTES 0.5 % (0-5); LYMPHOCYTES 14.6 % (15-50); MCH 32.7 pg (26.0-34.0); MCHC 33.6 g/dL (31.0-37.0); MCV 97.5 fL (80.0-100.0); MEAN PLATELET VOLUME 9.2 fL (7.4-10.4); MONOCYTES 2.5 % (2-11); NEUTROPHILS 81.7 % (40-80); PLATELET COUNT 274 10x3/uL (130-400); RBC 4.37 10x6/uL (4.00-5.40); RDW 13.9 % (11.5-14.5); WBC 7.5 10x3/uL (4.8-10.8)
[2016-09-04 13:11] LABS: ALBUMIN 3.4 g/dL (3.4-5.0); ALKALINE PHOSPHATASE 100 U/L (46-116); ALT (SGPT) 34 U/L (10-68); BILIRUBIN - TOTAL 0.26 mg/dL (0.2-1.3); CALC OSMOLALITY 278 mosm/kg (275-300); CALCIUM 8.8 mg/dL (8.5-10.1); CARBON DIOXIDE 24.5 mmol/L (21.0-32.0); CHLORIDE - SERUM 103 mmol/L (98-107); CREATININE - SERUM 0.9 mg/dL (0.6-1.3); GLUCOSE 172 mg/dL (74-106); PROTEIN - SERUM 7.1 g/dL (6.4-8.2); SODIUM 138 mmol/L (136-145); UREA NITROGEN 10 mg/dL (7-18); eGFR NON AFRICAN AMERICAN 67 mL/min (90-120)
[2016-09-04 13:22] LABS: CHOL - HDL RATIO 2.2 ratio (2.3-4.1); CHOLESTEROL, TOTAL 131 mg/dL (0-200); CREATINE KINASE 49 UL (21-215); HDL CHOLESTEROL 59 mg/dL (32-96); LDL CHOLESTEROL 55 mg/dL (0-100); LDL-HDL RATIO 0.9 ratio (1.5-3.5); TRIGLYCERIDE 89 mg/dL (30-200)
[2016-09-04 13:23] LABS: TROPONIN-I < 0.017 ng/mL (0.000-0.060)
[2016-09-04 14:49] LABS: PROTIME 13.1 SECONDS (11.6-15.0)
[2016-09-04 14:50] LABS: D-DIMER-QUANTITATIVE 0.76 ug/mLFEU (0.20-0.54)
--- NOTE | 2016-09-04 19:30 | NUR ---
RECEIVED PATIENT FROM ER. PATIENT RESTING IN BED WITH FAMILY AT BEDSIDE. BROUGHT PATIENT WATER AND ICE PER HER REQUEST. PATIENT DENIES OTHER NEEDS AT THIS TIME. BED IN LOWEST POSITION AND CALL LIGHT WITHIN REACH. ENCOURAGED PATIENT TO CALL IF SHE HAS FURTHER NEEDS.
--- NOTE | 2016-09-04 20:48 | NUR ---
COMMUNICATION ERROR ON PATIENT'S PUMP. HEPARIN INFUSING @ 1000ML/HR.
[2016-09-04] MEDS ORDERED: ASPIRIN325 MG PO (23:52)
[2016-09-04] MEDS ORDERED: ROBAXIN-750750 MG PO (23:54)
[2016-09-04] MEDS ORDERED: LYRICA50 MG PO (23:55)
[2016-09-04] MEDS ORDERED: TYLENOL W/CODEI1 TAB PO (23:58)
[2016-09-04] MEDS ORDERED: MEDROL DOSE PACK4 MG PO (23:59)
[2016-09-05 00:09] VITALS: BP 133/60; BMI 29.8
[2016-09-05 05:34] LABS: BASOPHILS 0.3 % (0.0-2.0); EOSINOPHILS 2.3 % (0-7); HEMATOCRIT 43.1 % (36.0-48.0); HEMOGLOBIN 14.3 g/dL (12-16); IMMATURE GRANULOCYTES 0.3 % (0-5); MCH 32.3 pg (26.0-34.0); MCHC 33.2 g/dL (31.0-37.0); MCV 97.3 fL (80.0-100.0); MEAN PLATELET VOLUME 9.4 fL (7.4-10.4); MONOCYTES 9.1 % (2-11); PLATELET COUNT 298 10x3/uL (130-400); RBC 4.43 10x6/uL (4.00-5.40); RDW 13.9 % (11.5-14.5); WBC 10.7 10x3/uL (4.8-10.8)
[2016-09-05 05:55] LABS: CALC OSMOLALITY 281 mosm/kg (275-300); CALCIUM 8.9 mg/dL (8.5-10.1); CARBON DIOXIDE 27.6 mmol/L (21.0-32.0); CHLORIDE - SERUM 104 mmol/L (98-107); CREATININE - SERUM 0.8 mg/dL (0.6-1.3); POTASSIUM - SERUM 3.5 mmol/L (3.5-5.1); SODIUM 142 mmol/L (136-145); UREA NITROGEN 11 mg/dL (7-18); eGFR NON AFRICAN AMERICAN 76 mL/min (90-120)
[2016-09-05 05:57] LABS: GLUCOSE 98 mg/dL (74-106)
--- NOTE | 2016-09-05 09:00 | NUR ---
RECEIVED PT VIA FROM [facility] PER GERALDINE ENNIS, RN, PERSONAL CARE ATTENDANT, PT TO ROOM 1219, TRANSFERS SELF TO CHAIR, PT ORIENTED TO ROOM, BED IN LOW POSITION, SIDE RAILS X 2, CALL LIGHT IN REACH
[2016-09-05 09:25] VITALS: BP 111/65
--- NOTE | 2016-09-05 09:25 | NUR ---
ASSESSMENT PER FLOW SHEET, VS OBTAINED, IV IN RIGHT WRIST INTACT WITH NO REDNESS OR EDEMA INFUSING VIA PUMP NS AT 10 ML/HR, AND HEPARIN DRIP AT 10 ML/HR, SEE EMAR, PT REPORTS FLATUS, BM YESTERDAY, AND VOIDING BY SELF WITH NO DIFFICULTY, TELEMETRY IN PLACE, PT DENIES ANY N/V, DENIES SOB AT THIS TIME, REPORTS HAD SOB YESTERDAY, PT DENIES PAIN, REQUESTS COFFEE, INFORMED PT THAT I WILL MAKE SOME, PT VERBALIZES UNDERSTANDING, DENIES FURTHER NEEDS
--- NOTE | 2016-09-05 10:00 | NUR ---
PT AMB OFF UNIT, GAIT STEADY, REPORTS THAT SHE IS GOING TO SEE THE BABIES
--- NOTE | 2016-09-05 10:12 | NUR ---
PT BACK TO ROOM, LAB INTO ROOM FOR BLOOD DRAW
--- NOTE | 2016-09-05 10:31 | NUR ---
PT C/O BILATERAL LEG PAIN, ADM MORPHINE SIVP PER MD ORDERS, SEE EMAR, PT DENIES FURTHER NEEDS, [facility]
--- NOTE | 2016-09-05 11:00 | NUR ---
US TO ROOM FOR DOPPLER
--- NOTE | 2016-09-05 11:38 | NUR ---
PT AMB OFF UNIT WITH SPOUSE, GAIT STEADY
--- NOTE | 2016-09-05 11:52 | NUR ---
PT BACK ON UNIT, STOPS AT NURSES DESK TO CHIT CHAT, DENIES NEEDS OR PAIN
--- NOTE | 2016-09-05 12:00 | NUR ---
PT BACK TO ROOM, GAIT STEADY
[2016-09-05 13:20] VITALS: BP 101/62
--- NOTE | 2016-09-05 13:20 | NUR ---
PT AWAKE, VS OBTAINED, DENIES NEEDS OR PAIN AT THIS TIME
--- NOTE | 2016-09-05 13:37 | NUR ---
PT VISITING WITH GRANDDAUGHTER, NICODERM PATCH PLACED ON LEFT ARM, PT INST ON SIDE EFFECTS, VERBALIZES UNDERSTANDING, DENIES NEEDS OR PAIN AT THIS TIME
--- NOTE | 2016-09-05 14:45 | NUR ---
PT AMB OFF UNIT, GAIT STEADY, WITH GRANDDAUGHTER
--- NOTE | 2016-09-05 15:00 | NUR ---
PT BACK TO ROOM, GAIT STEADY, DENIES NEEDS OR PAIN, STATES "I'M JUST GOING TO GET A LITTLE RIGHT NOW"
--- NOTE | 2016-09-05 15:10 | NUR ---
DR UMESH SALEH FOR CONSULTATION
--- NOTE | 2016-09-05 15:15 | NUR ---
DR RODRÍGUEZ CALLS UNIT, REPORT FOR CONSULTATION
--- NOTE | 2016-09-05 15:25 | NUR ---
DR CALVO CALLS UNIT, REPORTS THAT HE KNOWS THAT PT IS ON [facility], WILL BE DOWN SHORTLY TO SEE PT
--- NOTE | 2016-09-05 15:53 | NUR ---
DR CALVO TO ROOM FOR EVALUATION
[2016-09-05 16:10] VITALS: BP 103/63
--- NOTE | 2016-09-05 16:10 | NUR ---
PT SITTING ON SIDE OF BED, VS OBTAINED, PT EXCITED THAT DR CALVO TOLD HER HE WAS GOING TO STOP HER HEPARIN AND THAT HE DIDN'T THINK SHE HAD A BLOOD CLOT, I INFORMED PT THAT I WILL CHECK HER ORDERS AND SOON THEY ARE IN, I WILL D/C THE HEPARIN AND SALINE LOCK HER IV, PT VERBALIZES UNDERSTANDING, DENIES NEEDS AT THIS TIME
--- NOTE | 2016-09-05 17:00 | NUR ---
PT AMB OFF UNIT, GAIT STEADY, SPOUSE AT SIDE, STATES "WE ARE GOING TO GO AND GET A SNACK OUT OF THE VENDING MACHINE"
--- NOTE | 2016-09-05 17:58 | NUR ---
PT BACK IN ROOM, PLAYING CARDS WITH SPOUSE, PT DENIES NEEDS OR PAIN AT THIS TIME
--- NOTE | 2016-09-05 19:00 | NUR ---
SHIFT REPORT TO NOE ELIZONDO RN
[2016-09-05 19:35] VITALS: BP 108/52
--- NOTE | 2016-09-05 19:35 | NUR ---
PT RECEIVED SITTING UP IN CHAIR AAOX3 WITH SPOUSE AT BEDSIDE PLAYING CARDS AT THIS TIME. BP-108/52 PULSE-77 TEMP-97.7. O2 SAT-98% ROOM AIR. PT RATES PAIN 5/10 AT THIS TIME. HEART RRR. LUNG SOUNDS CLEAR BILATERALLY. DENIES SOB. BOWEL SOUNDS ACTIVE X4 QUADRENTS. IV NOTED TO RIGHT WRIST INFUSING NS AND HEPARIN AT 10 CC/HR AT THIS TIME. PATENT. DRESSING CDI. PEDAL PULSES EQUAL BILATERALLY. PT RETURNED FROM AMBULATING UNIT APPROX 15 MINUTES AGO. PT DENIES NEEDS AT THIS TIME. BED LOW. PHONE AND CALL LIGHT IN REACH. SRX2.
--- NOTE | 2016-09-05 20:46 | NUR ---
PT UP AMBULATING HALLWAY AT THIS TIME WITH FAMILY MEMBERS. DENIES NEEDS. BED LOW. PHONE AND CALL LIGHT IN REACH. SRX2.
--- NOTE | 2016-09-05 21:22 | NUR ---
SPOKE WITH MAICOL, DRAWER IN AT THIS TIME CONCERNING GIVING PT IV MORPHINE WITH PT BP OF 108/52. MAICOL STATES AT THIS TIME TO ONLY GIVE 1-2 MG AT THIS TIME INSTEAD OF 4 MG.
--- NOTE | 2016-09-05 21:30 | NUR ---
PM MEDS GIVEN AT THIS TIME. IMDUR HELD DUE TO PT BP OF 108/52. 2 MG MORPHINE IVP GIVEN AT THIS TIME FOR PAIN PT RATES 12/30. WILL CONTINUE TO MONITOR. PT DENIES OTHER NEEDS. BED LOW. PHONE AND CALL LIGHT IN REACH. SRX2.
--- NOTE | 2016-09-05 22:26 | NUR ---
REASSESSED PTS PAIN AT THIS TIME. PT RATES PAIN /10. DENIES NEEDS. BED LOW. PHONE AND CALL LIGHT IN REACH. SRX2.
[2016-09-06 00:23] VITALS: BP 121/64
--- NOTE | 2016-09-06 00:23 | NUR ---
PT RESTING QUIETLY AT THIS TIME WITH EYES CLOSED. AROUSED EASILY. ADMINISTERED LOVENOX INJECTION SUBQ TO RLQ ABDOMEN. VSS. PT DENIES NEEDS AT THIS TIME. BED LOW. PHONE AND CALL LIGHT IN REACH. SRX2.
--- NOTE | 2016-09-06 02:03 | NUR ---
PT RESTING QUIETLY AT THIS TIME WITH EYES CLOSED. RESPIRATIONS EVEN, NON-LABORED. NO ACUTE DISTRESS NOTED AT THIS TIME. BED LOW. PHONE AND CALL LIGHT IN REACH. SRX2.
[2016-09-06 03:31] VITALS: BP 106/62
--- NOTE | 2016-09-06 03:31 | NUR ---
PT RESTING QUIETLY AT THIS TIME WITH EYES CLOSED. AROUSED EASILY. VSS. PT DENIES NEEDS AT THIS TIME. BED LOW. PHONE AND CALL LIGHT IN REACH. SRX2.
--- NOTE | 2016-09-06 05:43 | NUR ---
PROTONIX PO PER ORDERS GIVEN AT THIS TIME. PT DENIES NEEDS. BED LOW. PHONE AND CALL LIGHT IN REACH. SRX2.
--- NOTE | 2016-09-06 06:08 | NUR ---
PT UP USING RESTROOM. NO NEEDS NOTED AT THIS TIME.
--- NOTE | 2016-09-06 06:50 | NUR ---
PT RESTING QUIETLY AT THIS TIME WATCHING TV. DENIES NEEDS. BED LOW. PHONE AND CALL LIGHT IN REACH. SRX2.
[2016-09-06 07:17] LABS: BASOPHILS 0.4 % (0.0-2.0); EOSINOPHILS 2.9 % (0-7); HEMATOCRIT 43.8 % (36.0-48.0); HEMOGLOBIN 14.6 g/dL (12-16); IMMATURE GRANULOCYTES 0.4 % (0-5); MCH 32.5 pg (26.0-34.0); MCHC 33.3 g/dL (31.0-37.0); MCV 97.6 fL (80.0-100.0); MEAN PLATELET VOLUME 9.5 fL (7.4-10.4); MONOCYTES 9.9 % (2-11); NEUTROPHILS 43.4 % (40-80); PLATELET COUNT 286 10x3/uL (130-400); RBC 4.49 10x6/uL (4.00-5.40)
[2016-09-06 07:22] LABS: WBC 6.9 10x3/uL (4.8-10.8)
[2016-09-06 07:35] LABS: ANION GAP 11.4 mmol/L (8-16); CALCIUM 8.8 mg/dL (8.5-10.1); CARBON DIOXIDE 29.3 mmol/L (21.0-32.0); CREATININE - SERUM 0.9 mg/dL (0.6-1.3); MAGNESIUM - SERUM 1.8 mg/dL (1.8-2.4); PHOSPHOROUS 4.4 mg/dL (2.5-4.9); POTASSIUM - SERUM 3.7 mmol/L (3.5-5.1)
--- NOTE | 2016-09-06 07:55 | NUR ---
TERELL IS AWAKE AND STTING UP IN HER BED EATING BREAKFAST. SHE DENIES HAVING ANY CHEST PAIN OVERNIGHT. SHE STATES THAT HER PAIN IS FROM BACK SURGERY A WEEK AGO. TELEMETRY IN TACT. IV SL IS WITHOUT REDNESS, OR INFILTRATION.
--- NOTE | 2016-09-06 08:30 | NUR ---
PATIENT AMBULATING OFF THE UNIT.
--- NOTE | 2016-09-06 08:50 | NUR ---
BACK TO THE UNIT. VSS. DENIES NEEDS.
--- NOTE | 2016-09-06 09:20 | NUR ---
DR. RODRÍGUEZ HERE TO ASSESS PATIENT.
--- NOTE | 2016-09-06 09:50 | NUR ---
PATIENT AMBULATING OFF THE UNIT.
--- NOTE | 2016-09-06 10:05 | NUR ---
PATIENT GIVEN MEDICATIONS. SHE ACCPETED NICOTINE PATCH. INFORMED HER THAT SHE NEED NOT GO OUTSIDE TO SMOKE CIGARETTES. SHE STATES THAT SHE WILL NOT. HE TALKED ABOUT THE PATCH FALLING OFF YESTERDAY. SHE NEVER CONFIRMED THAT SHE HAS BEEN GOING OUTSIDE TO SMOKE BUT SHE SMELLS OF CIGARETTE SMOKE.
--- NOTE | 2016-09-06 11:45 | NUR ---
MALE VISITOR IN THE ROOM. SHE IS SITTING UP IN THE BEDSIDE CHAIR THEY PLAY CAREDS. DENIES NEEDS.
--- NOTE | 2016-09-06 12:20 | NUR ---
PATIENT OFF THE UNIT TO A V/Q SCAN.
--- NOTE | 2016-09-06 12:40 | CN ---
PATIENT NAME:FORTUNATO JONES MEDICAL RECORD: [id number] : 52 LOCATION:[facility] D.1219 ADMIT DATE: 09/04/16 ACCOUNT: [id number] CONSULTING PHYSICIAN: SRINIVASA RODRÍGUEZ MD REFERRING PHYSICIAN: WILMA ARCHULETA MD DATE OF CONSULTATION: 09/06/2016 HISTORY OF PRESENT ILLNESS: Fortunato Jones is a 66-year-old ____, continues to smoke; actually, she was out smoking this morning and has a history of coronary artery disease, most recently looks like a thrombus involving the saphenous vein graft. She had a chest CT, which showed possible pulmonary embolus. She is short of breath at baseline shortness of breath. ____ exacerbation. We are asked to see her concerning her cardiovascular status. PAST MEDICAL HISTORY: Includes: 1. History of hypertension. 2. Obstructive pulmonary disease. 3. Osteoarthritis. 4. Gastroesophageal reflux disease. MEDICATIONS: Include Nexium 40 q. day, Lyrica 50 q. day, aspirin 81 q. day, atorvastatin 40 q. day, Imdur 60 q. day, Effient 10 q.h.s. bedtime, albuterol q.4. ALLERGIES: TETANUS AND AMBIEN. SOCIAL HISTORY: Lives here in [place]. She smokes over a pack a day. No set of exercise program. REVIEW OF SYSTEMS: The patient reports easy bruising but reports no swollen glands. The patient reports no fever, no night sweats, no significant weight gain, no significant weight loss. No significant exercise tolerance. The patient reports no dry eyes, no irritation, no vision change. Patient reports no difficulty hearing and no ear pain. Patient reports no frequent nose bleeds or nose and sinus problems. Patient reports on arm pain on exertion. No shortness of breath while lying down. No history of heart murmur. Patient reports no cough, no wheezing or coughing up blood. Patient reports no abdominal pain, no vomiting. Normal appetite. No diarrhea and not vomiting blood. No nausea and no constipation. Patient reports no incontinence. No difficulty urinating. No hematuria. No increased frequency. Patient reports no muscle aches. No weakness, no arthralgias, no back pain. No swelling of the extremities. Patient reports no abnormal mole, no jaundice, no rashes. Reports no loss of consciousness. No weakness and no numbness. No seizures, dizziness, or headaches. The patient reports no depression, no sleep disturbance, feeling safe in a relationship and no alcohol abuse. Patient reports on fatigue. Reports no runny nose or sinus pressure. No itching, no hives, and no frequent sneezing. PHYSICAL EXAMINATION: GENERAL: This is a middle-aged female, in no acute distress. VITAL SIGNS: Blood pressure 106/62, pulse ____ and regular. HEENT: Normocephalic and atraumatic. NECK: No JVD or bruit. HEART: Regular. LUNGS: Rodriguez clear. CONSULT REPORT [id number] FORTUNATO JONES ABDOMEN: Soft and nontender. EXTREMITIES: Pulses 2+ with no edema. DIAGNOSTIC DATA: ECG without acute change. Cardiac enzymes are negative. IMPRESSION: Given her history, we would probably favor long-term aspirin and Xarelto combination; no contraindication to discharge from cardiovascular standpoint. TRANSINT:[id number] Voice Confirmation ID: [id number] DOCUMENT ID: [id number] SRINIVASA RODRÍGUEZ MD at 1240 CC: [id number] DICTATION DATE: 09/06/16 09 SWATCH PASTER: 09/06/16 1042 ADM IN [facility] [address] [place] [address]
--- NOTE | 2016-09-06 12:50 | NUR ---
PATIENT BACK TO HER ROOM. LUNCH PROVIDED. DENIED NEEDS.
--- NOTE | 2016-09-06 13:30 | NUR ---
PATIENT OUT AMBULATING IN THE HALLWAY. SHE DENIES NEEDS. TELEMETRY WORN,.
[2016-09-06 14:36] VITALS: Ht 160 cm; Wt 76.2 kg
--- NOTE | 2016-09-06 14:38 | NUR ---
PATIENT BACK TO HER ROOM. SHE DENIES CP TODAY. HAS BEEN AMBULATING IN THE HALLWAY WITH AND SITTING IN THE NURSERY WAITING ROOM. SHE STATES THAT SHE FEELS CLOSTERPHOBIC IN HER ROOM.
--- NOTE | 2016-09-06 16:22 | NUR ---
Patient Name: FORTUNATO JONES Admission Status: ER Accout number: [id number] Admission Date: 09-04-2016 : 1950 Admission Diagnosis: Attending: YESSICA Current LOS: 2 Anticipated DC Date: 09-07-2016 Planned Disposition: Home Primary Insurance: MEDICARE A & B Discharge Planning Comments: CM MET WITH PATIENT AND SPOUSE TO DISCUSS DISCHARGE PLANNING / NEEDS. PATIENT AND SPOUSE STATE DISCHARGE PLAN IS TO RETURN HOME. [facility] HOME ENVIORNMENT IS SAFE. DENIED NEED FOR HOME HEALTH SERVICES AT THIS TIME. PATIENT WILL NEED NEBULIZER ORDERED UPON DISCHARGE. SHE SELECTED [facility] FOR NEBULIZER AND NEB MEDS. CM SPOKE WITH JUDY AT [facility]. VERIFIED THAT PATIENT WILL NOT HAVE ANY CO-PAY WITH PRESENTLY PLANNED NEB MED. WILL NEED NEB RX, NEBULIZER ORDER AND FACE SHEET FAXED TO JUDY AT UPON DISCHARGE. IF PATIENT CAN DISCHARGE AND MAKE IT TO [facility] BEFORE 5:00, PATIENT CAN HIDE BUFFER NEBULIZER AND NEB MEDS ON HER WAY HOME. OTHERWISE [facility] CAN/WILL ARRANGE FOR DELIVERY. GAMA AUGUSTE SPOKE WITH DR RODRÍGUEZ AND VERIFIED THAT HE IS OKAY WITH PATIENT DISCHARGING HOME ON ELIQUIS INSTEAD OF XARALTO. CM PROVIDED PATIENT WITH FREE 30-DAY TRIAL OFFER CARD AND $10 COPAY CARDS FOR ELIQUIS. CM INSTRUCTED PATIENT HOW TO ACTIVATE CARDS AND THAT SHE WILL NEED TO ACTIVATE THESE CARDS PRIOR TO FILLING THE PRESCRIPTIONS. PATIENT AND SPOUSE BOTH VOICED UNDERSTANDING OF HOW TO ACTIVATE THESE CARDS AND STATED THEY WOULD TAKE CARE OF THAT. PATIENT USES [facility] ON [facility] FOR HER PRESCRIPTION MEDICATIONS [phone]. PATIENT AND SPOUSE DENY ANY OTHER DISCHARGE PLANNING / NEEDS AT THIS TIME. CM WILL CONTINUE TO FOLLOW AND ASSIST NEEDED WITH DCP / NEEDS. PATIENT'S SPOUSE WILL TRANSPORT PATIENT HOME UPON DISCHARGE. Is the patient Alert and Oriented? Yes 0 * How many steps to enter\exit or inside your home? 5 0 * PCP Francois 0 * Pharmacy [facility] [phone] 0 * Preadmission Environment Home with Family 0 * ADLs Independent 0 * Equipment None 0 * List name and contact numbers for known caregivers / representatives who currently or will assist patient after discharge: Spouse, Félix Jones [phone] 0 * Community resources currently utilized None 0 * Additional services required to return to the preadmission environment? No 0 * Can the patient safely return to the preadmission environment? Yes 0 * Has this patient been hospitalized within the prior 30 days at any hospital? Yes Safety Lead: Shy Huffman
--- NOTE | 2016-09-06 16:25 | NUR ---
Patient Name: FORTUNATO JONES Admission Status: ER Accout number: [id number] Admission Date: 09-04-2016 : 1950 Admission Diagnosis: Attending: YESSICA Current LOS: 2 Anticipated DC Date: 09-07-2016 Planned Disposition: Home Primary Insurance: MEDICARE A & B Discharge Planning Comments: CM MET WITH PATIENT AND SPOUSE TO DISCUSS DISCHARGE PLANNING / NEEDS. PATIENT AND SPOUSE STATE DISCHARGE PLAN IS TO RETURN HOME. [facility] HOME ENVIORNMENT IS SAFE. DENIED NEED FOR HOME HEALTH SERVICES AT THIS TIME. PATIENT WILL NEED NEBULIZER ORDERED UPON DISCHARGE. SHE SELECTED [facility] FOR NEBULIZER AND NEB MEDS. CM SPOKE WITH JUDY AT [facility]. VERIFIED THAT PATIENT WILL NOT HAVE ANY CO-PAY WITH PRESENTLY PLANNED NEB MED. WILL NEED NEB RX, NEBULIZER ORDER, DISCHARGE INSTRUCTIONS AND FACE SHEET FAXED TO JUDY AT UPON DISCHARGE. IF PATIENT CAN DISCHARGE AND MAKE IT TO [facility] BEFORE 5:00, PATIENT CAN ASSISTANT OPERATOR NEBULIZER AND NEB MEDS ON HER WAY HOME. OTHERWISE [facility] CAN/WILL ARRANGE FOR DELIVERY. GAMA AUGUSTE SPOKE WITH DR RODRÍGUEZ AND VERIFIED THAT HE IS OKAY WITH PATIENT DISCHARGING HOME ON ELIQUIS INSTEAD OF XARALTO. CM PROVIDED PATIENT WITH FREE 30-DAY TRIAL OFFER CARD AND $10 COPAY CARDS FOR ELIQUIS. CM INSTRUCTED PATIENT HOW TO ACTIVATE CARDS AND THAT SHE WILL NEED TO ACTIVATE THESE CARDS PRIOR TO FILLING THE PRESCRIPTIONS. PATIENT AND SPOUSE BOTH VOICED UNDERSTANDING OF HOW TO ACTIVATE THESE CARDS AND STATED THEY WOULD TAKE CARE OF THAT. PATIENT USES [facility] ON [facility] FOR HER PRESCRIPTION MEDICATIONS [phone]. PATIENT AND SPOUSE DENY ANY OTHER DISCHARGE PLANNING / NEEDS AT THIS TIME. CM WILL CONTINUE TO FOLLOW AND ASSIST NEEDED WITH DCP / NEEDS. PATIENT'S SPOUSE WILL TRANSPORT PATIENT HOME UPON DISCHARGE. Is the patient Alert and Oriented? Yes 0 * How many steps to enter\exit or inside your home? 5 0 * PCP Francois 0 * Pharmacy [facility] [phone] * Preadmission Environment Home with Family 0 * ADLs Independent 0 * Equipment None 0 * List name and contact numbers for known caregivers / representatives who currently or will assist patient after discharge: Spouse, Félix Jones [phone] 0 * Community resources currently utilized None 0 * Additional services required to return to the preadmission environment? No 0 * Can the patient safely return to the preadmission environment? Yes 0 * Has this patient been hospitalized within the prior 30 days at any hospital? Yes Long Lines Operator: Shy Huffman
--- NOTE | 2016-09-06 18:23 | NUR ---
PATIENT HAS BEEN OUT AMBULATING THE HALLS. RETURNING NOW TO ROOM. DENIES NEEDS.
[2016-09-06 19:20] VITALS: BP 141/65
--- NOTE | 2016-09-06 19:20 | NUR ---
AWAKE DURING INITIAL ROUNDS. INTRODUCED SELF. V/S TAKEN. ASSESSMENT DONE. STATUS Dx: PULMONARY EMBOLUS. TELEMETRY ON--SINUS RHYTHM. SALINE LOCK TO R WRIST INTACT. DENIES ANY CHEST PAIN BUT C/O PAIN FROM NECK AND BACK. (PT STATES SHE HAD BACK SURGERY ABOUT A WEEK AGO.)
--- NOTE | 2016-09-06 20:05 | NUR ---
RT HERE TO GIVE BREATHING TREATMENT.
--- NOTE | 2016-09-06 22:20 | NUR ---
HS MEDS GIVEN. SEE E-MAR.
--- NOTE | 2016-09-06 22:48 | NUR ---
DR. DANIELSON CALLED UNIT REQUESTING THAT STAFF BE INFORMED THAT HE WOULD SEE MD. ARMIJO IN AM. Alondra LINDSEY RN INFORMED OF SAME.
--- NOTE | 2016-09-07 01:30 | NUR ---
EYES CLOSED. LEFT UNDISTURBED.
--- NOTE | 2016-09-07 03:20 | NUR ---
APPEARS TO BE ASLEEP.
[2016-09-07 05:22] VITALS: BP 116/66
--- NOTE | 2016-09-07 06:20 | NUR ---
BODY BUILDER HERE TO DRAW AM LAB. SLEPT FAIRLY WELL DURING THE NIGHT. CONTINUING PLAN OF CARE. ANTICIPATES DISCHARGE TODAY.
[2016-09-07 06:57] LABS: BASOPHILS 0.6 % (0.0-2.0); EOSINOPHILS 2.8 % (0-7); HEMATOCRIT 42.4 % (36.0-48.0); HEMOGLOBIN 14.2 g/dL (12-16); IMMATURE GRANULOCYTES 0.3 % (0-5); LYMPHOCYTES 30.9 % (15-50); MCH 32.5 pg (26.0-34.0); MCHC 33.5 g/dL (31.0-37.0); MEAN PLATELET VOLUME 9.3 fL (7.4-10.4); MONOCYTES 9.1 % (2-11); NEUTROPHILS 56.3 % (40-80); PLATELET COUNT 279 10x3/uL (130-400); RBC 4.37 10x6/uL (4.00-5.40); RDW 13.7 % (11.5-14.5); WBC 7.1 10x3/uL (4.8-10.8)
[2016-09-07 07:30] VITALS: BP 132/67
--- NOTE | 2016-09-07 07:30 | NUR ---
PT IS SITTING UP IN CHAIR EATING BREAKFAST. VS TAKEN AND ARE STABLE. GEN- AWAKE AND ALERT. LUNGS- WHEEZING NOTED. HEART-RRR. ABD- SOFT WITH BS PRESENT. EXT NO EDEMA. WARM AND DRY. IV INTACT AND PATENT R WRIST. BED IS LOW, SIDE RAILS UP X 2 AND CALL LIGHT IS IN REACH. PT IS UP AND AMBULATORY TO BATHROOM AND HALLWAYS.
[2016-09-07 07:35] LABS: CALC OSMOLALITY 281 mosm/kg (275-300); CARBON DIOXIDE 31.4 mmol/L (21.0-32.0); CHLORIDE - SERUM 104 mmol/L (98-107); CREATININE - SERUM 0.7 mg/dL (0.6-1.3); GLUCOSE 109 mg/dL (74-106); POTASSIUM - SERUM 3.5 mmol/L (3.5-5.1); SODIUM 141 mmol/L (136-145); UREA NITROGEN 13 mg/dL (7-18); eGFR NON AFRICAN AMERICAN 89 mL/min (90-120)
--- NOTE | 2016-09-07 08:00 | NUR ---
PT IS AMBULATORY IN HALLWAY WITH HER .
--- NOTE | 2016-09-07 09:24 | NUR ---
I GAVE PT HER 0900 MEDS. SHE REFUSED NICODERM PATCH AT THIS TIME. PT IS SITTING UP AND PLAYING CARDS WITH HER . PT WANTS TO GO HOME BUT STATES THAT THEY ARE SUPPOSE TO DO AN ECHO ON HER TODAY.
--- NOTE | 2016-09-07 10:38 | NUR ---
DR CALVO IS HERE TO SEE PT. SHE IS READY FOR DISCHARGE FROM HIS STANDPOINT. HE HAS ORDERED FOR HER TO BE ON ELIQUIS 5 MG BID. HE BROUGHT HER SOME SAMPLES FROM HIS OFFICE.
--- NOTE | 2016-09-07 10:57 | NUR ---
TIGHTENER IS HERE TO DO ECHOCARDIOGRAM
--- NOTE | 2016-09-07 11:33 | NUR ---
PT UP AND AMBULATING IN HALLWAYS. SHE IS READY TO BE DISCHRAGED HOME.
[2016-09-07] MEDS ORDERED: NICODERM C1 PATCH .3 TRANSDERM (12:11)
--- NOTE | 2016-09-07 12:11 | NUR ---
DR JOHANSEN IS HERE TO SEE PT. DIONICIO CHANDRA NOTED. OK'D PT FOR DISCHARGE.
[2016-09-07] MEDS ORDERED: ASPIRIN81 MG PO (12:12)
[2016-09-07] MEDS ORDERED: PROTONIX40 MG PO (12:12)
[2016-09-07] MEDS ORDERED: ELIQUIS5 MG PO (12:14)
[2016-09-07] MEDS ORDERED: IPRAT-ALBUT 0.5-3 ML UPD (12:14)
--- NOTE | 2016-09-07 12:59 | NUR ---
CM MET WITH PATIENT AND SPOUSE. CONFIRMED DISCHARGE PLAN IS STILL TO RETURN HOME. DENIES ANY DISCHARGE PLANNING NEEDS / CONCERNS AT THIS TIME. PATIENT HAS SAMPLES OF ELIQUIS FROM DR CALVO, FREE 30 DAY SUPPLY CARD AND $10 COPAY CARDS FOR ELIQUIS FROM . CM HAS FAXED FACE SHEET, ORDER FOR NEBULIZER AND DR CALVO'S PROGRESS NOTE WITH NEB DIRECTIONS TO JACKELIN AT [facility]. CM CALLED [facility], SPOKE TO DAVID, INSTRUCTED NOT TO FILL DU[facility] RX PATIENT WILL PICK THIS UP WITH HER NEBULIZER AT [facility]. DAVID VOICED UNDERSTANDING. [facility] RX CALLED INTO [facility]. CM WILL CONTINUE TO FOLLOW AND ASSIST NEEDED WITH DC PLANNING / NEEDS. PATIENT IS READY FOR DISCHARGE FROM CM STAND POINT.
--- NOTE | 2016-09-07 13:36 | NUR ---
PT WAS DISCHARGED TO HOME. DISCHARGE INSTRUCTIONS, HANDOUTS AND FU APPTS GIVEN. ALL HER PRESCRIPTIONS WERE SENT TO PHARMACY. PT REFUSED TO RIDE IN WHEELCHAIR. AMBULATED WITH HER . PT HAS FU APPT WITH DR CALVO FOR October AT 3:30. HE WANTED TO SEE HER IN 6-8 WEEKS BUT HE DOES NOT HAVE ANYTHING AVAILABLE PER STAFF. PFT'S AND 6 MIN WALK TEST SCHEDULED FOR OCTOBER 19 AT [facility].
== END 2016-09-07 13:30 | disposition home or self-care (01) | DRG 176 ==
LOC: D.ER 12:19 → D.MS 17:56 → D.WS 17:56
PROVIDERS: Emergency Medicine; Nurse Practitioner Family; ADMIT Emergency Medicine
DX: I26.99 Other pulmonary embolism without acute cor pulmonale (principal); F17.203 Nicotine dependence unspecified, with withdrawal; I25.10 Atherosclerotic heart disease of native coronary artery without angina pectoris; Z95.1 Presence of aortocoronary bypass graft; K21.9 Gastro-esophageal reflux disease without esophagitis; I10 Essential (primary) hypertension; J44.9 Chronic obstructive pulmonary disease, unspecified; G47.33 Obstructive sleep apnea (adult) (pediatric); M19.90 Unspecified osteoarthritis, unspecified site; E78.5 Hyperlipidemia, unspecified; G62.9 Polyneuropathy, unspecified; F41.9 Anxiety disorder, unspecified

== ENCOUNTER 2016-12-30 06:21 | Day surgery (SDC) | payer MEDICARE, BC ==
[2016-12-28 13:56] LABS: HEMATOCRIT 46.4 % (36.0-48.0); HEMOGLOBIN 15.8 g/dL (12-16); MCH 33.3 pg (26.0-34.0); MCHC 34.1 g/dL (31.0-37.0); MCV 97.9 fL (80.0-100.0); MEAN PLATELET VOLUME 8.8 fL (7.4-10.4); RBC 4.74 10x6/uL (4.00-5.40); RDW 13.8 % (11.5-14.5); WBC 6.8 10x3/uL (4.8-10.8)
[~2016-12-30] VITALS: Ht 160 cm; Wt 75.8 kg
[~2016-12-30 06:21] MED LIST changes: +ASPIRIN81 MG PO; +ELIQUIS5 MG PO; +IPRAT-ALBUT 0.5-3 ML UPD; +MEDROL DOSE PACK4 MG PO; +NICODERM C1 PATCH .3 TRANSDERM; +PROTONIX40 MG PO; +ROBAXIN-750750 MG PO; +TYLENOL W/CODEI1 TAB PO
[2016-12-30] MEDS ORDERED: NEXIUM40 MG PO (08:37)
[2016-12-30 08:38] VITALS: BP 150/63; Ht 160 cm; Wt 75.8 kg
--- NOTE | 2016-12-30 10:28 | NUR ---
1000 RELAXING AFTER VALIUM GIVEN.
[2016-12-30] MEDS ORDERED: HYDROCODONE-APA1 TAB PO (10:54)
--- NOTE | 2016-12-30 12:33 | NUR ---
8304 PIV REMOVED W/CATHETER TIP INTACT
--- NOTE | 2016-12-30 15:02 | NUR ---
1240 PT DC HOME VIA W/FAMILY AT SIDE. SON DRIVING
--- NOTE | 2016-12-31 16:21 | OP ---
PATIENT NAME: FORTUNATO JONES MEDICAL RECORD: [id number] :52 LOCATION:D.OPS ADMISSION DATE: SURGEON: ORIN MEJIA MD DATE OF OPERATION: 12/30/2016 Orthopedic Surgery Operative Note PREOPERATIVE DIAGNOSIS: Medial meniscus tear of the right knee. POSTOPERATIVE DIAGNOSIS: Medial meniscus tear of the right knee. PROCEDURE: Arthroscopic partial medial meniscectomy of the right knee. SURGEON: Orin Mejia MD ANESTHESIA: General. INTRAOPERATIVE COMPLICATIONS: None. 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 OPERATIVE SUMMARY IN DETAIL: After obtaining the appropriate preoperative orthopedic surgery consent as well as anesthetic consultation, evaluation and clearance, the patient was brought to the operating room and placed on the operating table in supine position. After general laryngeal mask was administered, tourniquet was placed about the proximal aspect of the right lower extremity. Right lower extremity was then prepped and draped in routine sterile fashion. The leg was elevated and exsanguinated, tourniquet inflated to 350 mmHg. Routine inferolateral portal was established followed by superomedial portal and inferomedial portal. Diagnostic arthroscopy revealed the above findings. Combinations of a meniscotome as well as an arthroscopic resector were utilized to debride the meniscus back to stable meniscal elements. Having completed this, the knee was insufflated with 30 cc of 0.25% Marcaine with epinephrine and 80 mg of Depo-Medrol. Arthroscopy portals were closed in routine interrupted fashion using 4-0 Prolene. Sterile dressings were applied. The patient was awakened, taken to recovery room in stable condition. All final needle and sponge counts were correct. TRANSINT:[id number] Voice Confirmation ID: [id number] DOCUMENT ID: [id number] ORIN MEJIA MD at 1621 CC: [id number] DICTATION DATE: 12/30/16 1057 ACCREDITATION MANAGER: 12/30/16 1736 [facility] 12/30/16 [place] [address]
== END 2016-12-30 12:40 | disposition home or self-care (01) ==
LOC: D.OPS 06:21 → D.PAN 10:15 → D.OPS 10:15 → D.PAN 12:00 → D.OPS 12:40 → D.PAN 14:45 → D.OPS 14:45
PROVIDERS: Anesthesiology
DX: S83.241A Other tear of medial meniscus, current injury, right knee, initial encounter (principal); F17.200 Nicotine dependence, unspecified, uncomplicated; I25.10 Atherosclerotic heart disease of native coronary artery without angina pectoris; J44.9 Chronic obstructive pulmonary disease, unspecified; Z95.1 Presence of aortocoronary bypass graft; K21.9 Gastro-esophageal reflux disease without esophagitis; Z95.5 Presence of coronary angioplasty implant and graft; Z01.812 Encounter for preprocedural laboratory examination

== ENCOUNTER 2017-05-10 09:04 | Outpatient (CLI) | payer MEDICARE, BC ==
[2016-12-30 08:38] VITALS: BMI 29.6
--- NOTE | ~2017-05-10 | HEMODYNAMI ---
PATIENT:FORTUNATO JONES MEDICAL RECORD: [id number] : 52 LOCATION:NATHALIA ADMISSION DATE: 05/10/17 Generatedon:05/10/201711:16 Patient name: FORTUNATO JONES Patient #: [id number] SSN: : 1950 Date of study: 05/10/2017 Page: Of Hemodynamic Procedure Report Patient Data Patient Demographics Procedure consent was obtained First Name: FORTUNATO Gender: Female Last Name: ROBERT : 1950 [facility] Initial: MARIA L Age: 67 year(s) Patient #: [id number] Race: Additional ID: [id number] Contact details [address]: [address] [place] [address] State: [place] City: [place] Zip code: [address] Past Medical History Allergies Allergen Reaction Date Comments Reported Other allergy 06/26/2016 tetnus, ambien, toxoid Admission Admission Data Admission Date: 05/10/2017 Admission Time: 9:04 Procedure Procedure Types Cath Procedure Diagnostic Procedure LHC LHC w/Coronaries w/Grafts PCI Procedure Coronary Atherectomy Atherectomy Coronary Initial Miscellaneous Procedures Moderate Sedation up to 30 minutes Procedure Description Procedure Date Procedure Date: 05/10/2017 Procedure Start Time: 10:45 Procedure End Time: 11:15 Procedure Staff Name Function Keven Stokes MD Performing Physician Madelaine Mooney RT Monitor Kyle Lawrence RT Scrub Callum Ennis RN Nurse Procedure Data Cath Procedure Fluoroscopy Diagnostic fluoroscopy Total fluoroscopy Time: 6.9 time: 6.9 min min Diagnostic fluoroscopy Total fluoroscopy dose: 462 dose: 462 mGy mGy Contrast Material Contrast Material Type Amount (ml) Isovue 300 99 Entry Location Entry Primary Successful Side Size Upsize Upsize Entry Closure Succes sful Closure Location (Fr) 1 (Fr) 2 (Fr) Remarks Device Remarks Femoral Right 5 Fr 6 Fr artery Short Estimated blood loss: 10 ml Diagnostic catheters Device Type Used For End Catheter Placement MULTIPACK Pigtail 5 Fr LV Angiography catheter MULTIPACK JL 4.0 5Fr Left Coronary catheter Angiography DIAGNOSTIC AR 2 MOD 5 Fr SVG Angiography catheter ([id number]) DIAGNOSTIC AR 2 MOD 5 Fr Right Coronary catheter ([id number]) Angiography Procedure Complications No complications Procedure Medications Medication Administration Route Dosage 0.9% NaCl ml/hr Oxygen NC 2 l/min Heparin Flush Bag added to field 2 bags (1000units/500ml NS) Lidocaine 2% added to field 20 Versed I.V. 2 mg Fentanyl I.V. 100 mcg Heparin Bolus I.V. 4000 units Versed I.V. 1 mg Hemodynamics Rest Heart Rate: 66 (bpm) Pressure Samples Time Site Value (mmHg) Purpose Heart Use Rate(bpm) 10:46 LV 163/9,13 Snapshot 78 Snapshots Pre Cath Intra NCS Post Cath Vital Signs Time Heart Resp SPO2 etCO2 NIBP (mmHg) Rhythm Pain Sedation Rate (ipm) (%) (mmHg) Status Level (bpm) 10:33:01 73 15 100 0 156/93(132) NSR 0 (11) 10(A) , No pain 10:37:49 79 15 99 0 142/78(111) NSR 0 (11) 10(A) , No pain 10:42:34 80 18 98 0 139/85(119) NSR 0 (11) 10(A) , No pain 10:47:19 84 19 98 0 136/85(121) NSR 0 (11) 10(A) , No pain 10:52:04 87 18 99 0 148/78(116) NSR 0 (11) 10(A) , No pain 10:56:50 88 19 99 0 142/76(125) NSR 0 (11) 10(A) , No pain 11:01:35 87 19 98 0 137/77(127) NSR 0 (11) 10(A) , No pain 11:06:18 86 12 99 0 131/73(113) NSR 0 (11) 10(A) , No pain 11:10:58 88 14 99 0 136/80(112) NSR 0 (11) 10(A) , No pain Medications Time Medication Route Dose Verified Delivered Reason Notes Effectiveness by by 10:33:42 0.9% NaCl ml/hr Callum Callum Per physician Raymon Ennis RN RN 10:33:55 Oxygen NC 2 Callum Callum Per physician l/min Raymon Ennis RN RN 10:34:10 Heparin Flush added 2 Callum Callum used for Bag to bags Raymon Ennis procedure (1000units/500ml field RN RN NS) 10:34:27 Lidocaine 2% added 20ml Callum Callum for local to vial Raymon Ennis anesthetic field RN RN 10:43:22 Versed I.V. 2 mg Callum Callum for sedation Raymon Ennis RN RN 10:43:31 Fentanyl I.V. 100 Callum Callum for sedation mcg Raymon Ennis RN RN 11:00:13 Heparin Bolus I.V. 4000 Callum Callum for units Raymon Ennis anticoagulation RN RN 11:00:22 Versed I.V. 1 mg Callum Callum for sedation Raymon Ennis RN pedal assembler Log Time Note 10:14:50 Time tracking: Regular hours ::55 Plan of Care:Hemodynamics will remain stable., Cardiac rhythm will remain stable., Comfort level will be maintained., Respiratory function will remain adequate., Patient/ family verbilizes understanding of procedure., Procedure tolerated without complication., Recovers from procedure without complications.. 10:16:01 Kyle Lawrence RT(R) sent for patient. Start room use. 10:23:09 Patient received from ED to CCL 1 Alert and oriented. Tansferred to table in Supine position. 10:23:10 Warm blankets applied, and manny hugger turned on for patient comfort. 10:23:11 Correct patient and procedure confirmed by team. 10:23:13 Signed procedure consent form obtained from patient. 10:23:14 ECG and BP/O2 sat monitors applied to patient. 10:23:15 Full Disclosure recording started 10:31:57 Vital chart was started 10:32:00 Rhythm: sinus bradycardia 10:33:42 0.9% NaCl ml/hr was administered by Callum Ennis RN; Per physician; 10:33:55 Oxygen 2 l/min NC was administered by Callum Ennis RN; Per physician; 10:34:10 Heparin Flush Bag (1000units/500ml NS) 2 bags added to field was administered by Callum Ennis RN; used for procedure; 10:34:27 Lidocaine 2% 20ml vial added to field was administered by Callum Ennis RN; for local anesthetic; :34:55 H&P Date Dictated: 05/10/2017 ER History on chart.. 10:34:56 Pre-procedure instructions explained to patient. 10:34:57 Pre-op teaching completed and patient verbalized understanding. 10:34:58 Family in waiting room. 10:35:00 Patient NPO since Midnight. 10:35:09 Is the patient allergic to Iodine/contrast media? No. 10:35:10 Is patient on blood thinner?Yes 10:35:13 ACC The patient was administered the following blood thiners within the last 24 hours: ACCEffient 10:35:15 Patient diabetic? No. 10:35:39 Previous problem with sedation/anesthesia? No ? 10:35:40 Snore? Yes 10:35:41 Sleep apnea? No 10:35:42 Deviated septum? No 10:35:43 Opens mouth fully? Yes 10:35:44 Sticks out tongue? Yes 10:35:45 Airway obstruction? No ? 10:35:48 Dentures? Yes In 10:35:52 Pre procedure: right dorsailis pedis pulse 2+ Normal; easily identifiable; not easily obliterated 10:35:58 Patient pain scale 3/10 Chest. 10:36:06 IV patent on arrival in left forearm with 0.9% NaCl at [facility]. 10:36:09 Lab results completed and on chart. 10:36:12 Right groin area was prepped with chlora-prep and draped in sterile fashion 10:36:13 Alarms reviewed by R. N. 10:36:13 Sharps counted by scrub and verified by R.N. 10:37:44 Baseline sample Acquired. 10:37:45 Physician paged 10:40:32 Zero performed for pressure channel P1 10:42:35 Final Timeout: patient, procedure, and site verified with staff and physician. All members of the team are in agreement. 10:42:37 Right groin site verified by team. 10:42:40 Physical assessment completed. ASA score P 2 - A patient with mild systemic disease as per Keven Stokes MD. 10:42:43 Sedation plan: IV Moderate Sedation Medication:Versed, Fentanyl 10:43:22 Versed 2 mg I.V. was administered by Callum Ennis RN; for sedation; 10:43:31 Fentanyl 100 mcg I.V. was administered by Callum Ennis RN; for sedation; 10:45:08 Procedure started. 10:45:11 Local anesthetic to right femoral artery with Lidocaine 2% by Keven Stokes MD.INITIAL ACCESS ONLY 10:45:26 A 5 Fr sheath was inserted into the Right Femoral artery 10:45:54 Use device set Femoral Dx 10:45:55 ACIST Syringe (78284) opened to sterile field. 10:45:55 Bag Decanter (2002S) opened to sterile field. 10:45:56 Medline Cath Pack ([id number]) opened to sterile field. 10:45:56 SHEATH 5FR [place] (MFW796) opened to sterile field. 10:45:57 DIAGNOSTIC WIRE .035 260cm J wire (896506) opened to sterile field. 10:45:58 ACIST Hand Control (10364) opened to sterile field. 10:45:58 ACIST Manifold (95192) opened to sterile field. 10:45:59 DIAGNOSTIC Multipack 5Fr catheter set (VZ5592) opened to sterile field. 10:46:00 Tegaderm 4 x 4 (1626W) opened to sterile field. 10:46:04 PERCUTANEOUS ENTRY 19GA needle opened to sterile field. 10:46:25 A MULTIPACK Pigtail 5 Fr catheter was advanced over the wire and used for LV Angiography. 10:46:37 LV gram done using OBRIEN 10:46:41 Injector settings: Ml/sec: 10, Volume: 20, 10:46:56 LV hemodynamics recorded. 10:47:01 EF : 50 % 10:47:11 A MULTIPACK JL 4.0 5Fr catheter was advanced over the wire and used for Left Coronary Angiography. 10:48:35 Catheter removed. 10:48:51 Use device set TAUTH PCI 10:49:08 SHEATH 6FR [place] (KSE194) opened to sterile field. 10:49:09 INFLATOR Merit BasixCompak (FY2818) opened to sterile field. 10:50:04 A DIAGNOSTIC AR 2 MOD 5 Fr catheter ([id number]) was advanced over the wire and used for SVG Angiography.to Circ 10:50:27 A DIAGNOSTIC AR 2 MOD 5 Fr catheter ([id number]) was advanced over the wire and used for Right Coronary Angiography. 10:50:45 Catheter removed. 10:51:01 GUIDE 6FR EBU 3.0 catheter ([id number]) opened to sterile field. 10:51:22 Sheath upsized to a 6 Fr Short. 10:52:04 CHOICE PT Extra Support 182cm wire ([id number]) opened to sterile field. 10:59:04 6 Fr EBU 3.0 guide catheter was inserted over the wire 11:00:11 Choice PT ES wire advanced. 11:00:13 Heparin Bolus 4000 units I.V. was administered by Callum Ennis RN; for anticoagulation; 11:00:22 Versed 1 mg I.V. was administered by Callum Ennis RN; for sedation; 11:02:03 A LASER ELCA 0.9 Rx atherectomy catheter (003151) was prepped and advanced across the Mid LAD lesion. Pass Number: 1 11:02:09 Laser pass to mLAD with Fluence of 40 and Rate of 40. 11:02:55 A LASER ELCA 0.9 Rx atherectomy catheter (471291) was prepped and advanced across the Mid LAD lesion. Pass Number: 2 11:03:02 Laser pass to mLAD with Fluence of 40 and Rate of 40. 11:03:30 A LASER ELCA 0.9 Rx atherectomy catheter (791397) was prepped and advanced across the Mid LAD lesion. Pass Number: 3 11:03:36 Laser pass to mLAD with Fluence of 40 and Rate of 40. 11:04:35 A LASER ELCA 0.9 Rx atherectomy catheter (121029) was prepped and advanced across the Mid LAD lesion. Pass Number: 4 11:04:39 Laser pass to mLAD with Fluence of 80 and Rate of 80. 11:05:11 A LASER ELCA 0.9 Rx atherectomy catheter (127240) was prepped and advanced across the Mid LAD lesion. Pass Number: 5 11:05:15 Laser pass to mLAD with Fluence of 80 and Rate of 80. 11:05:47 A LASER ELCA 0.9 Rx atherectomy catheter (615562) was prepped and advanced across the Mid LAD lesion. Pass Number: 6 11:05:50 Laser pass to mLAD with Fluence of 80 and Rate of 80. 11:06:13 Laser catheter removed. 11:06:58 Laser total pulses delivered: 3568 11:07:07 Laser total treatment time: 0 minutes 58 seconds 11:07:50 Inflation number: 1 A EUPHORA 3.5 x 20 Balloon ([id number]) was prepped and advanced across the Mid LAD, then inflated to 17 LYRIC for 0:09 (min:sec). 11:08:16 Inflation number: 2 The EUPHORA 3.5 x 20 Balloon ([id number]) was reinflated across the Mid LAD, to 19 LYRIC for 0:10 (min:sec). 11:08:34 Balloon removed over the wire. 11:08:34 Wire removed. 11:08:35 Guide catheter removed. 11:08:46 Procedure ended.(Physican Out) 11:08:57 Fluoroscopy time 06.90 minutes. 11:09:15 Flurop Dose total: 462 11:09:15 Fluoroscopy dose: 462 mGy 11:09:19 Contrast amount:Isovue 300 99ml. 11:09:20 Sharps counted by scrub and verified by R.N. 11:09:22 Insertion/operative site no bleeding no hematoma. 11:09:25 Post-op/insertion site Right Femoral artery dressed using a 4 x 4 and Tegaderm. 11:09:29 Post right femoral artery:stable, soft, clean and dry 11:09:32 Post Procedure Pulses reassessed and unchanged 11:09:36 Post-procedure physical assessment completed. ASA score P 2 - A patient with mild systemic disease as per Keven Stokes MD. 11:09:38 Post procedure rhythm: unchanged. 11:09:42 Estimated blood loss: 10 ml 11:09:43 Post procedure instruction explained to patient.Patient verbalizes understanding. 11:09:44 Patient needs reinforcement of post procedure teaching. 11:10:11 Procedure type changed to Cath procedure, Diagnostic procedure, LHC, LHC w/Coronaries w/Grafts, PCI procedure, Coronary Atherectomy, Atherectomy Coronary Initial, Miscellaneous Procedures, Moderate Sedation up to 30 minutes 11:10:15 Procedure Complication : No complications 11:10:17 See physician's report for complete and final results. 11:10:30 EXOSEAL 6Fr (EX600) opened to sterile field. 11:12:33 Procedure and supply charges have been captured, reviewed, submitted and are correct. 11:15:12 Vital chart was stopped 11:15:15 Report given to Pre/Post Procedure Room. 11:15:18 Patient transfered to Pre/Post Procedure Room with Stretcher. 11:15:20 Procedure ended. 11:15:20 Full Disclosure recording stopped 11:15:28 End room use (Document Last) Intervention Summary Intervention Notes Time ActionType Lesion and Equipment Action# Pressure Duration Attributes Used 11:02:03 Atherectomy Mid LAD LASER ELCA 00:00 0.9 Rx atherectomy catheter (973348) 11:02:55 Atherectomy Mid LAD LASER ELCA 00:00 0.9 Rx atherectomy catheter (925442) 11:03:30 Atherectomy Mid LAD LASER ELCA 00:00 0.9 Rx atherectomy catheter (489517) 11:04:35 Atherectomy Mid LAD LASER ELCA 00:00 0.9 Rx atherectomy catheter (004631) 11:05:11 Atherectomy Mid LAD LASER ELCA 00:00 0.9 Rx atherectomy catheter (772616) 11:05:47 Atherectomy Mid LAD LASER ELCA 00:00 0.9 Rx atherectomy catheter (308242) 11:07:50 Inflate Mid LAD EUPHORA 3.5 1 17 00:09 balloon x 20 Balloon ([id number]) 11:08:16 Reinflate Mid LAD EUPHORA 3.5 2 19 00:10 balloon x 20 Balloon ([id number]) Device Usage Item Name Manufacture Quantity Catalog Number [facility] Part Current [facility] Lot# / Charge Number Stock Stock Serial# Code ACIST Acist 1 46147 498833 610820 111287 20 Syringe FreePriceAlerts (92767) Systems Inc Bag Decanter Microtek 1 517116 67501 420287 5 () Medical Inc. Medline Cath Cardinal 1 [id number] 123339 82862 398561 5 Pack Health ([id number]) SHEATH 5FR Terumo 1 VEG142 774751 752411 501722 40 [place] (YCP011) DIAGNOSTIC St Dominic 1 981691 662323 857340 658203 30 WIRE .035 260cm J wire (116551) ACIST Hand Acist 1 15045 535225 587964 756502 5 Control Medical (12446) Systems Inc ACIST Acist 1 13052 504225 142948 755882 5 Manifold Medical (85387) Systems Inc DIAGNOSTIC Cardinal 1 KB9485 846252 76350 450733 30 Multipack Health 5Fr catheter set (DZ0688) Tegaderm 4 x 3M 1 1626W 375680 710772 500004 5 4 (1626W) PERCUTANEOUS Cook Medical 1 D01760 010558 036100 5 ENTRY 19GA needle MULTIPACK Cardinal 1 658744 5 Pigtail 5 Fr Health catheter MULTIPACK JL Cardinal 1 501781 5 4.0 5Fr Health catheter SHEATH 6FR Terumo 1 KPR438 832862 092540 327091 40 [place] (GBH412) INFLATOR Merit 1 TM2574 226003 545608 343580 15 [facility] Medical BasixCompak (WM0271) DIAGNOSTIC Cardinal 1 [id number] 249806 469786 442537 20 AR 2 MOD 5 Health Fr catheter (641526A) GUIDE 6FR Medtronic 1 [id number] 599560 97549 927638 0 EBU 3.0 catheter ([id number]) CHOICE PT [place] 1 [id number] 889338 594707 256625 5 Extra Scientific Support 182cm wire ([id number]) LASER ELCA Clarissa 1 110-004 815079 693279 814358 5 0.9 Rx Healthcare atherectomy (813633) catheter (456194) EUPHORA 3.5 Medtronic 1 [id number] 061349 480201 664166 5 [id number] x 20 Balloon ([id number]) EXOSEAL 6Fr Cardinal 1 EX600 799742 836013 378086 10 (EX600) Health Signature Audit [place] Stage Time Signature Unsigned Intra-Procedure 05/10/2017 Madelaine 11:16:02 AM Counts RT(R) Signatures Monitor : Madelaine Signature : Counts RT Date : Time : [facility] [address] [place] [address]
[~2017-05-10 09:04] MED LIST changes: +HYDROCODONE-APA1 TAB PO
[2017-05-10 09:29] LABS: BASOPHILS 0.5 % (0-2); EOSINOPHILS 2.5 % (0-7); HEMATOCRIT 45.1 % (36.0-48.0); HEMOGLOBIN 15.3 g/dL (12-16); IMMATURE GRANULOCYTES 0.4 % (0-5); LYMPHOCYTES 30.1 % (15-50); MCH 32.7 pg (26.0-34.0); MCHC 33.9 g/dL (31.0-37.0); MCV 96.4 fL (80.0-100.0); MEAN PLATELET VOLUME 8.9 fL (7.4-10.4); NEUTROPHILS 53.5 % (40-80); PLATELET COUNT 280 10x3/uL (130-400); RBC 4.68 10x6/uL (4.00-5.40); RDW 13.5 % (11.5-14.5); WBC 8.6 10x3/uL (4.8-10.8)
[2017-05-10 09:48] LABS: ALBUMIN 3.5 g/dL (3.4-5.0); ALKALINE PHOSPHATASE 98 U/L (46-116); ALT (SGPT) 36 U/L (10-68); CALC OSMOLALITY 273 mosm/kg (275-300); CARBON DIOXIDE 28.5 mmol/L (21.0-32.0); CHLORIDE - SERUM 101 mmol/L (98-107); CREATININE - SERUM 0.7 mg/dL (0.6-1.3); GLUCOSE 104 mg/dL (74-106); POTASSIUM - SERUM 4.6 mmol/L (3.5-5.1); PROTEIN - SERUM 7.4 g/dL (6.4-8.2); SODIUM 137 mmol/L (136-145); UREA NITROGEN 13 mg/dL (7-18); eGFR NON AFRICAN AMERICAN 89 mL/min (90-120)
[2017-05-10 09:59] LABS: CHOL - HDL RATIO 3.5 ratio (2.3-4.1); CHOLESTEROL, TOTAL 230 mg/dL (0-200); CKMB 1.1 U/L (0.0-3.6); CREATINE KINASE 93 UL (21-215); HDL CHOLESTEROL 66 mg/dL (32-96); LDL CHOLESTEROL 140 mg/dL (0-100); LDL-HDL RATIO 2.1 ratio (1.5-3.5); TRIGLYCERIDE 123 mg/dL (30-200); TROPONIN-I < 0.017 ng/mL (0.000-0.060)
[2017-05-10] MEDS ORDERED: NITROSTAT0.4 MG SL (11:55)
--- NOTE | 2017-05-10 12:42 | NUR ---
1145 LYING FLAT, ROOM AIR NO DISTRESS. NSR RATE 77 W NO C/O CHEST PAIN. PULSES PALP X 4. R GROIN 6F EXOSEAL C/D/I W NO HEMATOMA OR BLEEDING. NO FAMILY AT BEDSIDE. WILL MONITOR CLOSELY FOR CHANGES. 1230 R GROIN REMAINS C/D/I W NO HEMATOMA OR BLEEDING. ALL VITALS WNL.
--- NOTE | 2017-05-10 13:52 | NUR ---
1330 LYING FLAT, R GROIN REMAINS C/D/I WNO HEMATOMA OR BLEEDING. SIPPING SODA AND EATING SANDWICH WITH ASSIST FROM AT BEDSIDE.
--- NOTE | 2017-05-10 15:27 | NUR ---
ALERT AND ORIENTED X4. AMBULATES TO RESTROOM. GAIT STEADY. SPOUSE AT BEDSIDE. RT GROIN CLEAN DRY INTACT. FREE FROM HEMATOMA. FREE FROM BLEEDING. BP-137/79, SINUS 82bpm ON TELEMETRY. O2 94% RA. DENIES SOB OR CHEST PAIN. PULSES PALPABLE BILATERALLY. DC LT HAND IV TIP INTACT. DISCHARGE INSTRUCTIONS GIVEN VERBALLY AND WRITTEN. DISCHARGE PAPERS SIGNED ON CHART. WRITTEN PRESCRIPTION PROVIDED. ESCORT TO RIDE VIA WHEELCHAIR BY FIELD HOCKEY COACH TEAM. REMAINS FREE FROM INJURY.
--- NOTE | 2017-05-18 15:46 | OP ---
PATIENT NAME: FORTUNATO JONES MEDICAL RECORD: [id number] :52 LOCATION:D.CAT ADMISSION DATE: SURGEON: RIK COOPER MD DATE OF OPERATION: 05/10/2017 PROCEDURES: 1. Laser atherectomy of LAD. 2. PTCA of LAD. 3. Left heart catheterization. 4. Selective coronary angiography. 5. Vein graft angiography. 6. Left ventriculogram. INDICATION: Angina, unstable. PROCEDURE IN DETAIL: After informed consent was obtained and after detailed explanation of risks, benefits as well as alternative therapies, the patient elected to proceed with angiogram and angioplasty. The right femoral area was prepped and draped in normal sterile fashion. Right femoral artery was cannulated via modified Seldinger technique with placement of 6-Slovenian sheath. All catheters exchanged through this sheath. FINDINGS: 1. The left anterior descending and left main have multiple previously placed stents. There is up to 80% in-stent restenosis in the mid vessel. This already has 2 stents in this area. 2. The left circumflex is totally occluded. 3. Vein graft to circumflex is widely patent. 4. Right coronary artery is widely patent. 5. FOSTER to the LAD is closed. 6. Left ventriculogram was performed in standard 30-degree OBRIEN view, reveals good wall motion throughout all segments. Overall ejection fraction is 60%. ATHERECTOMY AND PTCA OF THE LAD: We did laser atherectomy multiple passes at 40-40 and 80-80. We then ballooned it with a 3.5 balloon. Result was 0% residual stenosis. OVERALL IMPRESSION: Successful percutaneous transluminal coronary angioplasty and laser atherectomy of the left anterior descending going from 80% initial stenosis to 0% residual. TRANSINT:[id number] Voice Confirmation ID: [id number] DOCUMENT ID: [id number] RIK COOPER MD at 1546 CC: [id number] DICTATION DATE: 05/10/17 1114 DRILL PRESS OPERATOR FOR METAL: 05/10/17 1131 DEP CLI 05/10/17 [place] [id number]
== END 2017-05-10 15:31 | disposition home or self-care (01) ==
LOC: D.ER 09:04 → D.OPS 09:04 → D.CATH 09:04 → EDSTATUS 11:45 → D.CATH 15:31
PROVIDERS: Emergency Medicine
DX: I25.110 Atherosclerotic heart disease of native coronary artery with unstable angina pectoris (principal); T82.855A Stenosis of coronary artery stent, initial encounter; Z01.812 Encounter for preprocedural laboratory examination

== ENCOUNTER 2017-06-10 10:13 | Emergency (ER) | payer MEDICARE, BC ==
[2016-12-30 08:38] VITALS: BMI 29.6
[~2017-06-10 10:13] MED LIST changes: +NITROSTAT0.4 MG SL
[2017-06-10 11:03] LABS: HEMOGLOBIN 14.5 g/dL (12-16); LYMPHOCYTES 24.5 % (15-50); MCH 32.7 pg (26.0-34.0); MCHC 34.5 g/dL (31.0-37.0); MCV 94.6 fL (80.0-100.0); MEAN PLATELET VOLUME 8.1 fL (7.4-10.4); NEUTROPHILS 62.6 % (40-80); PLATELET COUNT 321 10x3/uL (130-400); RBC 4.44 10x6/uL (4.00-5.40); RDW 13.6 % (11.5-14.5); WBC 8.4 10x3/uL (4.8-10.8)
[2017-06-10 11:11] LABS: ALBUMIN 3.3 g/dL (3.4-5.0); ALKALINE PHOSPHATASE 100 U/L (46-116); ALT (SGPT) 28 U/L (10-68); CALC OSMOLALITY 283 mosm/kg (275-300); CALCIUM 9.1 mg/dL (8.5-10.1); CARBON DIOXIDE 27.6 mmol/L (21.0-32.0); CHLORIDE - SERUM 104 mmol/L (98-107); CREATININE - SERUM 0.8 mg/dL (0.6-1.3); GLUCOSE 126 mg/dL (74-106); POTASSIUM - SERUM 3.8 mmol/L (3.5-5.1); PROTEIN - SERUM 7.2 g/dL (6.4-8.2); SODIUM 141 mmol/L (136-145); UREA NITROGEN 14 mg/dL (7-18); eGFR NON AFRICAN AMERICAN 76 mL/min (90-120)
== END 2017-06-10 13:30 | disposition home or self-care (01) ==
LOC: D.ER 10:13
PROVIDERS: Emergency Medicine
DX: J06.9 Acute upper respiratory infection, unspecified (principal); J20.9 Acute bronchitis, unspecified

== ENCOUNTER 2017-07-08 13:09 | Inpatient (IN) | payer MEDICARE, BC ==
[2017-07-08 14:31] LABS: BASOPHILS 0.5 % (0-2); EOSINOPHILS 7.9 % (0-7); HEMATOCRIT 42.7 % (36.0-48.0); HEMOGLOBIN 14.5 g/dL (12-16); IMMATURE GRANULOCYTES 0.6 % (0-5); LYMPHOCYTES 35.1 % (15-50); MCH 32.8 pg (26.0-34.0); MCV 96.6 fL (80.0-100.0); MEAN PLATELET VOLUME 8.9 fL (7.4-10.4); MONOCYTES 12.2 % (2-11); NEUTROPHILS 43.7 % (40-80); PLATELET COUNT 286 10x3/uL (130-400); RBC 4.42 10x6/uL (4.00-5.40); RDW 15.1 % (11.5-14.5); WBC 8.7 10x3/uL (4.8-10.8)
[2017-07-08 14:37] LABS: ALBUMIN 3.6 g/dL (3.4-5.0); ALKALINE PHOSPHATASE 96 U/L (46-116); ALT (SGPT) 26 U/L (10-68); BILIRUBIN - TOTAL 0.27 mg/dL (0.2-1.3); CALC OSMOLALITY 277 mosm/kg (275-300); CALCIUM 9.2 mg/dL (8.5-10.1); CARBON DIOXIDE 26.6 mmol/L (21.0-32.0); CHLORIDE - SERUM 102 mmol/L (98-107); CREATININE - SERUM 0.8 mg/dL (0.6-1.3); GLUCOSE 89 mg/dL (74-106); POTASSIUM - SERUM 4.3 mmol/L (3.5-5.1); PROTEIN - SERUM 7.8 g/dL (6.4-8.2); SODIUM 139 mmol/L (136-145); UREA NITROGEN 16 mg/dL (7-18); eGFR NON AFRICAN AMERICAN 76 mL/min (90-120)
[2017-07-08 14:42] LABS: CREATINE KINASE 90 UL (21-215); MAGNESIUM - SERUM 2.1 mg/dL (1.8-2.4); TROPONIN-I < 0.017 ng/mL (0.000-0.060)
[2017-07-08 16:01] LABS: D-DIMER-QUANTITATIVE 0.38 ug/mLFEU (0.20-0.54)
[2017-07-08 16:05] LABS: APTT 27.5 SECONDS (22.8-39.4); INR 0.96 (0.85-1.17); PROTIME 12.4 SECONDS (11.6-15.0)
[2017-07-08 16:33] LABS: CKMB 1.5 U/L (0.0-3.6); PRO BNP 110 pg/mL (0-125)
[2017-07-08] MEDS ORDERED: LOPRESSOR25 MG PO (21:34)
[2017-07-09 00:47] VITALS: BP 109/69
[2017-07-09 05:50] LABS: BASOPHILS 0.2 % (0-2); EOSINOPHILS 0.5 % (0-7); HEMATOCRIT 44.2 % (36.0-48.0); HEMOGLOBIN 14.8 g/dL (12-16); IMMATURE GRANULOCYTES 0.6 % (0-5); LYMPHOCYTES 16.1 % (15-50); MCH 32.3 pg (26.0-34.0); MCHC 33.5 g/dL (31.0-37.0); MCV 96.5 fL (80.0-100.0); MEAN PLATELET VOLUME 9.1 fL (7.4-10.4); MONOCYTES 1.1 % (2-11); NEUTROPHILS 81.5 % (40-80); PLATELET COUNT 301 10x3/uL (130-400); RBC 4.58 10x6/uL (4.00-5.40); RDW 14.9 % (11.5-14.5); WBC 6.6 10x3/uL (4.8-10.8)
[2017-07-09 06:14] LABS: ALBUMIN 3.4 g/dL (3.4-5.0); ANION GAP 16.3 mmol/L (8-16); BILIRUBIN - TOTAL 0.23 mg/dL (0.2-1.3); CALCIUM 8.9 mg/dL (8.5-10.1); CARBON DIOXIDE 24.6 mmol/L (21.0-32.0); CREATININE - SERUM 0.9 mg/dL (0.6-1.3); POTASSIUM - SERUM 3.9 mmol/L (3.5-5.1); PROTEIN - SERUM 7.6 g/dL (6.4-8.2)
[2017-07-09 06:57] VITALS: BP 121/66
[2017-07-09 10:27] VITALS: BP 132/71
[2017-07-09 12:45] VITALS: BP 125/63
[2017-07-09 16:25] VITALS: BP 136/57
[2017-07-09 20:49] VITALS: BP 145/64
[2017-07-10 05:36] LABS: ANION GAP 14.3 mmol/L (8-16); CALCIUM 8.4 mg/dL (8.5-10.1); CARBON DIOXIDE 22.9 mmol/L (21.0-32.0); POTASSIUM - SERUM 4.2 mmol/L (3.5-5.1)
[2017-07-10 05:53] LABS: BASOPHILS 0.1 % (0-2); EOSINOPHILS 0 % (0-7); HEMATOCRIT 38.5 % (36.0-48.0); HEMOGLOBIN 13.1 g/dL (12-16); IMMATURE GRANULOCYTES 0.5 % (0-5); LYMPHOCYTES 4.7 % (15-50); MCH 32.7 pg (26.0-34.0); MONOCYTES 3.6 % (2-11); NEUTROPHILS 91.1 % (40-80); PLATELET COUNT 279 10x3/uL (130-400); RBC 4.01 10x6/uL (4.00-5.40); RDW 15.1 % (11.5-14.5); WBC 22.1 10x3/uL (4.8-10.8)
[2017-07-10 06:33] VITALS: BP 117/66
[2017-07-10 09:46] VITALS: BP 127/67
[2017-07-10 12:50] VITALS: BP 126/62
[2017-07-10 16:09] VITALS: BP 131/56
[2017-07-10 20:30] VITALS: BP 154/68
[2017-07-11] VITALS (8 sets, daily range): BP systolic 130–163; BP diastolic 64–97
[2017-07-11 05:02] LABS: BASOPHILS 0.1 % (0-2); EOSINOPHILS 0 % (0-7); HEMATOCRIT 39.3 % (36.0-48.0); HEMOGLOBIN 13.4 g/dL (12-16); IMMATURE GRANULOCYTES 0.8 % (0-5); LYMPHOCYTES 4.5 % (15-50); MCH 32.5 pg (26.0-34.0); MCHC 34.1 g/dL (31.0-37.0); MCV 95.4 fL (80.0-100.0); MEAN PLATELET VOLUME 9.1 fL (7.4-10.4); MONOCYTES 3.9 % (2-11); NEUTROPHILS 90.7 % (40-80); PLATELET COUNT 313 10x3/uL (130-400); RBC 4.12 10x6/uL (4.00-5.40); RDW 14.9 % (11.5-14.5); WBC 18.5 10x3/uL (4.8-10.8)
[2017-07-11 05:18] LABS: CALC OSMOLALITY 284 mosm/kg (275-300); CALCIUM 8.5 mg/dL (8.5-10.1); CARBON DIOXIDE 25.4 mmol/L (21.0-32.0); CHLORIDE - SERUM 104 mmol/L (98-107); CREATININE - SERUM 0.8 mg/dL (0.6-1.3); GLUCOSE 211 mg/dL (74-106); POTASSIUM - SERUM 3.6 mmol/L (3.5-5.1); SODIUM 139 mmol/L (136-145); UREA NITROGEN 15 mg/dL (7-18); eGFR NON AFRICAN AMERICAN 76 mL/min (90-120)
[2017-07-11 15:18] LABS: CREATINE KINASE 87 UL (21-215)
[2017-07-11 15:20] LABS: TROPONIN-I < 0.017 ng/mL (0.000-0.060)
[2017-07-11 21:21] LABS: CKMB 2.7 U/L (0.0-3.6); CREATINE KINASE 66 UL (21-215)
[2017-07-11 21:26] LABS: TROPONIN-I < 0.017 ng/mL (0.000-0.060)
[2017-07-12] VITALS: BP 133/80
[2017-07-12 04:00] VITALS: BP 159/64
[2017-07-12 04:33] LABS: HEMATOCRIT 38.3 % (36.0-48.0); HEMOGLOBIN 13.3 g/dL (12-16); LYMPHOCYTES 6.8 % (15-50); MCH 32.4 pg (26.0-34.0); MCHC 34.7 g/dL (31.0-37.0); MEAN PLATELET VOLUME 8.6 fL (7.4-10.4); NEUTROPHILS 87.4 % (40-80); PLATELET COUNT 346 10x3/uL (130-400); RBC 4.11 10x6/uL (4.00-5.40); RDW 14.5 % (11.5-14.5)
[2017-07-12 04:35] LABS: MCV 93.2 fL (80.0-100.0); WBC 13.5 10x3/uL (4.8-10.8)
[2017-07-12 05:01] LABS: CALCIUM 8.3 mg/dL (8.5-10.1); CARBON DIOXIDE 25.2 mmol/L (21.0-32.0); CHLORIDE - SERUM 103 mmol/L (98-107); CKMB 2.1 U/L (0.0-3.6); CREATINE KINASE 48 UL (21-215); CREATININE - SERUM 0.9 mg/dL (0.6-1.3); GLUCOSE 235 mg/dL (74-106); POTASSIUM - SERUM 3.4 mmol/L (3.5-5.1); SODIUM 138 mmol/L (136-145); eGFR NON AFRICAN AMERICAN 66 mL/min (90-120)
[2017-07-12 05:02] LABS: CALC OSMOLALITY 285 mosm/kg (275-300); TROPONIN-I < 0.017 ng/mL (0.000-0.060); UREA NITROGEN 19 mg/dL (7-18)
[2017-07-12 05:16] LABS: IMMUNOGLOBULIN A 162 mg/dL (87-352); IMMUNOGLOBULIN G 884 mg/dL (700-1600)
[2017-07-12 09:13] VITALS: BP 155/70
[2017-07-12 17:46] VITALS: BP 127/69
[2017-07-12 20:00] VITALS: BP 155/75
[2017-07-13 04:00] VITALS: BP 128/71
[2017-07-13 06:01] LABS: BASOPHILS 0.3 % (0-2); EOSINOPHILS 0.1 % (0-7); HEMATOCRIT 39.8 % (36.0-48.0); HEMOGLOBIN 13.6 g/dL (12-16); IMMATURE GRANULOCYTES 2.3 % (0-5); LYMPHOCYTES 9.1 % (15-50); MCH 32.2 pg (26.0-34.0); MCHC 34.2 g/dL (31.0-37.0); MCV 94.3 fL (80.0-100.0); MEAN PLATELET VOLUME 9.2 fL (7.4-10.4); NEUTROPHILS 81.2 % (40-80); PLATELET COUNT 326 10x3/uL (130-400); RBC 4.22 10x6/uL (4.00-5.40); RDW 14.3 % (11.5-14.5); WBC 11.9 10x3/uL (4.8-10.8)
[2017-07-13 06:19] LABS: ANION GAP 14.6 mmol/L (8-16); CALCIUM 8.1 mg/dL (8.5-10.1); CARBON DIOXIDE 25.9 mmol/L (21.0-32.0); CREATININE - SERUM 0.9 mg/dL (0.6-1.3); POTASSIUM - SERUM 3.5 mmol/L (3.5-5.1)
[2017-07-13 09:10] VITALS: BP 155/66
[2017-07-13] MEDS ORDERED: PULMICORT0.5 MG/21 UPD (10:27)
[2017-07-13] MEDS ORDERED: STERAPRED DS 1210 MG PO (10:28)
[2017-07-13] MEDS ORDERED: OMNICEF300 MG PO (10:29)
[2017-07-20 03:10] LABS: IMMUNOGLOBULIN E QNS IU/mL (())
== END 2017-07-13 11:58 | disposition home or self-care (01) | DRG 190 ==
LOC: D.ER 13:09 → D.EDHOLD 19:16 → D.M2 19:16
PROVIDERS: Emergency Medicine; Family Medicine; Internal Medicine Nephrology; Internal Medicine Pulmonary Disease
DX: J44.0 Chronic obstructive pulmonary disease with (acute) lower respiratory infection (principal); J18.9 Pneumonia, unspecified organism; F17.203 Nicotine dependence unspecified, with withdrawal; J44.1 Chronic obstructive pulmonary disease with (acute) exacerbation; J00 Acute nasopharyngitis [common cold]; I10 Essential (primary) hypertension; E78.5 Hyperlipidemia, unspecified; I25.10 Atherosclerotic heart disease of native coronary artery without angina pectoris; K21.9 Gastro-esophageal reflux disease without esophagitis; F41.9 Anxiety disorder, unspecified; I08.1 Rheumatic disorders of both mitral and tricuspid valves; R76.11 Nonspecific reaction to tuberculin skin test without active tuberculosis; G62.9 Polyneuropathy, unspecified; Z95.1 Presence of aortocoronary bypass graft; Z95.5 Presence of coronary angioplasty implant and graft; Z86.711 Personal history of pulmonary embolism

== ENCOUNTER 2017-07-29 12:27 | Emergency (ER) | payer MEDICARE, BC ==
[~2017-07-29 12:27] MED LIST changes: +LOPRESSOR25 MG PO; +OMNICEF300 MG PO; +PULMICORT0.5 MG/21 UPD; +STERAPRED DS 1210 MG PO
[2017-07-29 13:02] LABS: BASOPHILS 0.4 % (0-2); EOSINOPHILS 3.2 % (0-7); HEMATOCRIT 41.1 % (36.0-48.0); HEMOGLOBIN 14.1 g/dL (12-16); IMMATURE GRANULOCYTES 0.6 % (0-5); LYMPHOCYTES 34.9 % (15-50); MCH 33.7 pg (26.0-34.0); MCHC 34.3 g/dL (31.0-37.0); MCV 98.1 fL (80.0-100.0); MONOCYTES 9.2 % (2-11); NEUTROPHILS 51.7 % (40-80); PLATELET COUNT 274 10x3/uL (130-400); RBC 4.19 10x6/uL (4.00-5.40); WBC 7.2 10x3/uL (4.8-10.8)
[2017-07-29 13:28] LABS: ALBUMIN 3.2 g/dL (3.4-5.0); ALKALINE PHOSPHATASE 85 U/L (46-116); ALT (SGPT) 31 U/L (10-68); BILIRUBIN - TOTAL 0.24 mg/dL (0.2-1.3); CALC OSMOLALITY 276 mosm/kg (275-300); CALCIUM 9.2 mg/dL (8.5-10.1); CARBON DIOXIDE 24.9 mmol/L (21.0-32.0); CHLORIDE - SERUM 100 mmol/L (98-107); CREATININE - SERUM 0.8 mg/dL (0.6-1.3); GLUCOSE 265 mg/dL (74-106); PROTEIN - SERUM 7.1 g/dL (6.4-8.2); SODIUM 134 mmol/L (136-145); UREA NITROGEN 12 mg/dL (7-18); eGFR NON AFRICAN AMERICAN 76 mL/min (90-120)
[2017-07-29 13:39] LABS: CHOL - HDL RATIO 7.6 ratio (2.3-4.1); CHOLESTEROL, TOTAL 273 mg/dL (0-200); CKMB 0.5 U/L (0.0-3.6); CREATINE KINASE 41 UL (21-215); HDL CHOLESTEROL 36 mg/dL (32-96); TRIGLYCERIDE 443 mg/dL (30-200)
[2017-07-29 13:40] LABS: TROPONIN-I < 0.017 ng/mL (0.000-0.060)
== END 2017-07-29 17:07 | disposition home or self-care (01) ==
LOC: D.ER 12:27
PROVIDERS: Emergency Medicine
DX: R07.9 Chest pain, unspecified (principal); J44.9 Chronic obstructive pulmonary disease, unspecified; K21.9 Gastro-esophageal reflux disease without esophagitis; F17.200 Nicotine dependence, unspecified, uncomplicated; I45.10 Unspecified right bundle-branch block

== ENCOUNTER 2017-08-04 10:02 | Outpatient (CLI) | payer MEDICARE, BC ==
[~2017-08-04] VITALS: Ht 160 cm; Wt 77.3 kg
--- NOTE | ~2017-08-04 | OP ---
PATIENT NAME: FORTUNATO JONES MEDICAL RECORD: [id number] :52 LOCATION:D.CAT ADMISSION DATE: SURGEON: RIK COOPER MD DATE OF OPERATION: 08/04/2017 PROCEDURES: 1. PTCA and stent of LAD. 2. Left heart catheterization. 3. Selective coronary angiography. 4. Left ventriculogram. 5. Vein graft angiography. INDICATION: Angina and coronary artery disease. PROCEDURE IN DETAIL: After informed consent was obtained and after detailed explanation of risks, benefits as well as alternative therapies, the patient elected to proceed with angiogram and angioplasty. The right femoral area was prepped and draped in normal sterile fashion. Right femoral artery was cannulated via modified Seldinger technique with placement of 6-Martiniquais sheath. All catheters exchanged through this sheath. FINDINGS: The left ventriculogram was performed in the standard 30-degree OBRIEN view reveals preserved cardiac wall motion, ejection fraction estimated 60%. SELECTIVE CORONARY ANGIOGRAPHY: 1. Left main showed no significant angiographic disease. 2. Left anterior descending has previously placed stent. There is an 80% in-stent restenosis in the mid vessel. 3. The left circumflex is closed. 4. Vein graft to the circumflex is widely patent. 5. Right coronary is small, nondominant. PTCA AND STENT OF THE LAD: The stent used is a 3.5 x 8 mm Merrill. The result was 0% residual stenosis. OVERALL IMPRESSION: Successful PTCA and sent of the LAD going from 80% in-stent restenosis to 0% residual. TRANSINT:[id number] Voice Confirmation ID: [id number] DOCUMENT ID: [id number] RIK COOPER MD at 1202 CC: [id number] DICTATION DATE: 08/04/17 1230 PUBLICIST: 08/04/17 1241 DEP CLI 08/04/17 [place] [id number] [place] [id number]
--- NOTE | ~2017-08-04 | HEMODYNAMI ---
PATIENT:FORTUNATO JONES MEDICAL RECORD: [id number] : 52 LOCATION:[facility] ADMISSION DATE: 08/04/17 Generatedon:08/04/201712:32 Patient name: FORTUNATO JONES Patient #: [id number] SSN: [id number] : 1950 Date of study: 08/04/2017 Page: Of Hemodynamic Procedure Report Patient Data Patient Demographics Procedure consent was obtained First Name: FORTUNATO Gender: Female Last Name: ROBERT : 1950 Middle Initial: MARIA L Age: 67 year(s) Patient #: [id number] Race: SSN: [id number] Additional ID: [id number] Contact details Address: [address] [place] [address] State: [place] City: [place] Zip code: [address] Past Medical History Allergies Allergen Reaction Date Comments Reported Other allergy 06/26/2016 tetnus, ambien, toxoid Admission Admission Data Admission Date: 08/04/2017 Admission Time: 10:02 Arrival Date: 08/04/2017 Arrival Time: 12:00 Admit Source: Other Insurance Payor: Medicare Height (in.): 64 BSA: 1.83 (m2) Height (cm.): 162.56 BMI: 29.52 (kg/m2) Weight (lbs.): 172 Weight (kg.): 78.02 Procedure Procedure Types Cath Procedure Diagnostic Procedure LHC LHC w/Coronaries w/Grafts Sedation Charges Moderate Sedation up to 15 minutes PCI Procedure Coronary Stent Coronary Stent Initial Procedure Description Procedure Date Procedure Date: 08/04/2017 Procedure Start Time: 12:15 Procedure End Time: 12:32 Procedure Staff Name Function Keven Stokes MD Performing Physician Marisela Cárdenas RT Monitor Dulce Espinoza RT Scrub Pierre Guerra RN Nurse Procedure Data Cath Procedure Fluoroscopy Diagnostic fluoroscopy Total fluoroscopy Time: 4.3 time: 4.3 min min Diagnostic fluoroscopy Total fluoroscopy dose: 414 dose: 414 mGy mGy Contrast Material Contrast Material Type Amount (ml) Isovue 300 67 Entry Location Entry Primary Successful Side Size Upsize Upsize Entry Closure Succes sful Closure Location (Fr) 1 (Fr) 2 (Fr) Remarks Device Remarks Femoral Right 5 Fr 6 Fr Exoseal artery Short Estimated blood loss: 10 ml Diagnostic catheters Device Type Used For End Catheter Placement MULTIPACK Pigtail 5 Fr Procedure catheter MULTIPACK JL 4.0 5Fr Procedure catheter DIAGNOSTIC AR 2 MOD 5 Fr Procedure catheter ([id number]) Procedure Complications No complications Procedure Medications Medication Administration Route Dosage Oxygen NC 2 l/min Heparin Flush Bag added to field 2 bags (1000units/500ml NS) 0.9% NaCl I.V. 100 ml/hr Fentanyl I.V. 50 mcg Versed I.V. 1 mg Fentanyl I.V. 50 mcg Versed I.V. 1 mg Heparin Bolus I.V. 4000 units Hemodynamics Rest BSA: 1.83 (m2) O2 Consumption: Estimated: 175 (ml/min) O2 Consumption indexed: E stimated:95.63 (ml/min/m) Heart Rate: 77 (bpm) Pressure Samples Time Site Value (mmHg) Purpose Heart Use Rate(bpm) 12:17 LV 121/-6,4 Snapshot 82 Snapshots Pre Cath Intra NCS Post Cath Vital Signs Time Heart Resp SPO2 etCO2 NIBP (mmHg) Rhythm Pain Sedation Rate (ipm) (%) (mmHg) Status Level (bpm) 11:56:41 76 16 99 0 136/72(110) NSR 0 (11) 10(A) , No pain 12:00:53 79 15 93 33.6 133/77(113) NSR 0 (11) 10(A) , No pain 12:05:07 79 16 93 38 143/79(110) NSR 0 (11) 10(A) , No pain 12:09:17 80 16 96 35.1 123/83(107) NSR 0 (11) 10(A) , No pain 12:13:25 80 16 98 32.1 128/78(104) NSR 0 (11) 10(A) , No pain 12:17:39 81 17 97 36.6 128/72(99) NSR 0 (11) 9(A) , No pain 12:21:53 86 16 98 41 136/72(104) NSR 0 (11) 9(A) , No pain 12:26:07 85 16 97 38.8 121/72(99) NSR 0 (11) 10(A) , No pain 12:28:39 85 17 98 38.8 129/75(95) NSR 0 (11) 10(A) , No pain 12:30:58 87 13 98 40.3 125/72(96) NSR 0 (11) 10(A) , No pain Medications Time Medication Route Dose Verified Delivered Reason Notes Effectiveness by by 11:55:08 Oxygen NC 2 Keven Pierre Per physician l/min Divya Guerra RN 11:55:17 Heparin Flush added 2 Keven Nolascoy used for Bag to bags Divya Guerra RN procedure (1000units/500ml field NS) 11:55:26 0.9% NaCl I.V. 100 Keven Pierre Per physician ml/hr Divya Guerra RN 12:14:38 Fentanyl I.V. 50 Keven Nolascoy for sedation mcg Divya Guerra RN 12:14:45 Versed I.V. 1 mg Keven Nolascoy for sedation Divya Guerra RN 12:23:41 Fentanyl I.V. 50 Keevn Nolascoy for sedation mcg Divya Guerra RN 12:23:43 Versed I.V. 1 mg Keven Jay for sedation Divya Guerra RN 12:24:00 Heparin Bolus I.V. 4000 Kevenmarlee Nolascoy for units Divya Guerra RN anticoagulation Procedure Log Time Note 11:35:19 Diagnostic Cath Status : Elective 11:35:50 Dulce Espinoza RT(R) sent for patient. Start room use. 11:35:50 Time tracking: Regular hours 11:35:55 Plan of Care:Hemodynamics will remain stable., Cardiac rhythm will remain stable., Comfort level will be maintained., Respiratory function will remain adequate., Patient/ family verbilizes understanding of procedure., Procedure tolerated without complication., Recovers from procedure without complications.. 11:37:00 Informed consent obtained and on chart 11:37:12 Admit Source: Other 11:37:19 Patient Height : 64 inches 11:37:43 Patient Weight : 172 lbs 11:37:47 Insurance Payor : Medicare 11:37:49 Arrival Date: 08/04/2017 12:00:00 PM 11:48:37 Patient received from Pre/Post Procedure Room to CCL 2 Alert and oriented. Tansferred to table in Supine position. 11:48:38 Warm blankets applied, and manny hugger turned on for patient comfort. 11:48:39 Correct patient and procedure confirmed by team. 11:55:08 Oxygen 2 l/min NC was administered by Pierre Guerra RN; Per physician; 11:55:17 Heparin Flush Bag (1000units/500ml NS) 2 bags added to field was administered by Pierre Guerra RN; used for procedure; 11:55:26 0.9% NaCl 100 ml/hr I.V. was administered by Pierre Guerra RN; Per physician; 11:55:35 ECG and BP/O2 sat monitors applied to patient. 11:55:35 Vital chart was started 11:55:36 Baseline sample Acquired. 11:55:41 Rhythm: sinus rhythm 11:55:52 Full Disclosure recording started 11:56:21 H&P Date Dictated: 08/03/2017 Within 30 days and on chart., H&P Addendum completed by physician on day of procedure. (MUST COMPLETE FOR ALL OUTPATIENTS). 11:56:53 Pre-procedure instructions explained to patient. 11:56:55 Family in waiting room. 11:56:57 Patient NPO since Midnight. 11:57:02 Is the patient allergic to Iodine/contrast media? No. 11:57:04 Was the patient premedicated? Yes 11:57:10 Is patient on blood thinner?Yes 11:57:14 ACC The patient was administered the following blood thiners within the last 24 hours: ACCEffient 11:57:16 Patient diabetic? Yes. 11:57:17 If diabetic: On Metformin? Yes 11:57:20 If on Metformin: Last Dose? 08/03/2017 11:57:25 Previous problem with sedation/anesthesia? No ? 11:57:26 Snore? No 11:57:28 Sleep apnea? No 11:57:37 Dentures? Yes in tight 11:57:53 Patient pain scale 0/10 ?. 11:58:00 IV patent on arrival in left forearm with 0.9% NaCl at [facility]. 11:58:07 Lab results completed and on chart. 11:58:11 Right groin area was prepped with chlora-prep and draped in sterile fashion 11:58:13 Alarms reviewed by R. N. 11:58:14 Sharps counted by scrub and verified by R.N. 12:14:08 Physician arrived 12:14:08 --------ALL STOP TIME OUT------ 12:14:11 Final Timeout: patient, procedure, and site verified with staff and physician. All members of the team are in agreement. 12:14:13 Right groin site verified by team. 12:14:16 Physical assessment completed. ASA score P 2 - A patient with mild systemic disease as per Keven Stokes MD. 12:14:20 Sedation plan: IV Moderate Sedation Medication:Versed, Fentanyl 12:14:25 Use device set Femoral Dx 12:14:28 Procedure started. 12:14:38 Fentanyl 50 mcg I.V. was administered by Pierre Guerra RN; for sedation; 12:14:39 ACIST Syringe (20198) opened to sterile field. 12:14:39 Bag Decanter (2002S) opened to sterile field. 12:14:40 Medline Cath Pack ([id number]) opened to sterile field. 12:14:40 SHEATH 5FR Delta (GVM082) opened to sterile field. 12:14:41 DIAGNOSTIC WIRE .035 260cm J wire (464937) opened to sterile field. 12:14:43 ACIST Hand Control (76770) opened to sterile field. 12:14:44 ACIST Manifold (91431) opened to sterile field. 12:14:45 Versed 1 mg I.V. was administered by Pierre Guerra RN; for sedation; 12:14:51 DIAGNOSTIC Multipack 5Fr catheter set (BZ0942) opened to sterile field. 12:14:52 Tegaderm 4 x 4 (1626W) opened to sterile field. 12:14:52 PERCUTANEOUS ENTRY 19GA needle opened to sterile field. 12:15:21 Local anesthetic to right femoral artery with Lidocaine 2% by Keven Stokes MD.INITIAL ACCESS ONLY 12:15:58 A 5 Fr sheath was inserted into the Right Femoral artery 12:16:05 A MULTIPACK Pigtail 5 Fr catheter was advanced over the wire and used for Procedure. 12:17:07 LV angiography performed. 12:17:31 EF : 55 % 12:17:33 Catheter removed. 12:17:43 A MULTIPACK JL 4.0 5Fr catheter was advanced over the wire and used for Procedure. 12:17:54 LCA angiography performed. 12::38 Catheter removed. 12:19:57 RCA angiography performed. 12:21:01 Catheter removed. 12:21:07 A DIAGNOSTIC AR 2 MOD 5 Fr catheter ([id number]) was advanced over the wire and used for Procedure. 12:21:20 SVG to Circ angiography performed. 12:21:47 RCA angiography performed. 12:21:50 Catheter removed. 12:21:56 SHEATH 6FR Delta (UBJ522) opened to sterile field. 12:21:56 INFLATOR Merit BasixCompak (WU9629) opened to sterile field. 12:21:58 CHOICE PT Extra Support 182cm wire ([id number]) opened to sterile field. 12:22:50 GUIDE 6FR XBLAD 3.5 catheter ([id number]) opened to sterile field. 12:23:05 Proceeding to intervention. 12:23:17 Sheath upsized to a 6 Fr Short. 12:23:27 6 Fr xblad guide catheter was inserted over the wire 12:23:37 choice ex wire advanced. 12:23:39 Wire advanced across lesion. 12::41 Fentanyl 50 mcg I.V. was administered by Pierre Guerra RN; for sedation; ::43 Versed 1 mg I.V. was administered by Pierre Guerra RN; for sedation; 12:24:00 Heparin Bolus 4000 units I.V. was administered by Pierre Guerra RN; for anticoagulation; :: Inflation Number: 1 A ADELAIDA RX 3.5 x 08 stent ([id number]) was prepped and advanced across the Mid LAD. The stent was deployed at 23 LYRIC for 0:06 (min:sec). 12::10 Wire removed. 12::11 Guide catheter removed. 12::23 Sheath removed intact; hemostasis achieved with Exoseal to the Right Femoral artery. :: Procedure ended.(Physican Out) ::38 Fluoroscopy time 04.30 minutes. 12::42 Contrast amount:Isovue 300 67ml. 12::49 Fluoroscopy dose: 414 mGy 12::49 Flurop Dose total: 414 12::50 Sharps counted by scrub and verified by R.N. 12::52 Insertion/operative site no bleeding no hematoma. 12::57 Post right femoral artery:stable 12::58 Post Procedure Pulses reassessed and unchanged 12:30:01 Post-procedure physical assessment completed. ASA score P 2 - A patient with mild systemic disease as per Keven Stokes MD. 12:30:04 Post procedure rhythm: unchanged. 12:30:07 Estimated blood loss: 10 ml 12:30:08 Post procedure instruction explained to patient.Patient verbalizes understanding. 12:30:35 Procedure type changed to Cath procedure, Diagnostic procedure, LHC, LHC w/Coronaries w/Grafts, Sedation Charges, Moderate Sedation up to 15 minutes, PCI procedure, Coronary Stent, Coronary Stent Initial 12:30:37 Procedure and supply charges have been captured, reviewed, submitted and are correct. 12:31:48 Procedure Complication : No complications 12:31:51 Vital chart was stopped 12::52 See physician's report for complete and final results. 12::53 Report given to Pre/Post Procedure Room. 12:32:03 Patient transfered to Pre/Post Procedure Room with Stretcher. 12:32:06 Procedure ended. 12:32:06 Full Disclosure recording stopped 12:32:09 End room use (Document Last) 12:32:31 ACC-PCI Only Patient was given prescriptions, or instructed by Keven Stokes MD to start/continue the following medications upon discharge: Effient Intervention Summary Intervention Notes Time ActionType Lesion and Equipment Used Action# Pressure Duration Attributes 12:25:26 Place stent Mid LAD ADELAIDA RX 3.5 x 1 23 00:06 08 stent ([id number]) Device Usage Item Name Manufacture Quantity Catalog Number Hospital Part Current M inimal Lot# / Charge Number Stock Stock Serial# Code ACIST Syringe Acist 1 92505 492965 207103 745906 2 0 (45068) Medical Systems Inc Bag Decanter Microtek 1 533809 78698 738019 5 () Medical Inc. Medline Cath Cardinal 1 [id number] 945776 27991 673439 5 Pack Health ([id number]) SHEATH 5FR Terumo 1 KDL009 316532 255483 779305 4 0 Delta ([id number]) DIAGNOSTIC St Dominic 1 206310 091219 584324 538965 3 0 WIRE .035 260cm J wire (356585) ACIST Hand Acist 1 42248 084095 096064 659054 5 Control Medical (23204) Systems Inc ACIST Manifold Acist 1 45369 483617 303023 879065 5 (11019) Medical Systems Inc DIAGNOSTIC Cardinal 1 TK6385 432253 23206 177302 3 0 Multipack 5Fr Health catheter set (VE0629) Tegaderm 4 x 4 3M 1 1626W 774022 020426 423609 5 (1626W) PERCUTANEOUS Cook Medical 1 U50577 805217 427027 5 ENTRY 19GA needle MULTIPACK Cardinal 1 000444 5 Pigtail 5 Fr Health catheter MULTIPACK JL Cardinal 1 569906 5 4.0 5Fr Health catheter DIAGNOSTIC AR Cardinal 1 [id number] 746388 219496 075929 2 0 2 MOD 5 Fr Health catheter (246334H) SHEATH 6FR Terumo 1 GOW700 491374 977332 027176 4 0 Delta (HET324) INFLATOR Merit Merit 1 YR6999 960183 947986 381850 1 5 [facility] ([id number]) CHOICE PT [place] 1 [id number] 564553 089868 400698 5 Extra Support Scientific 182cm wire ([id number]) GUIDE 6FR Cardinal 1 [id number] 771540 740169 308755 1 0 XBLAD 3.5 Health catheter (71323453) ADELAIDA RX 3.5 x Medtronic 1 [id number] 425034 9077793 384253 5 [id number] 08 stent ([id number]) Signature Audit [place] Time Signature Unsigned Intra-Procedure 08/04/2017 Marisela Cárdenas 12:32:51 PM RT(R) Signatures Monitor : Marisela Cárdenas Signature : RT Date : Time : [place] [id number] [facility] [place] [address]
[2017-08-04] MEDS ORDERED: GLUCOPHAGE500 MG PO (10:21)
[2017-08-04] MEDS ORDERED: LIPITOR10 MG PO (10:21)
[2017-08-04 10:29] VITALS: BP 130/63; Ht 160 cm; Wt 77.3 kg
[2017-08-04 10:48] LABS: BASOPHILS 0.5 % (0-2); EOSINOPHILS 5.5 % (0-7); IMMATURE GRANULOCYTES 0.5 % (0-5); LYMPHOCYTES 43.9 % (15-50); MCH 32.9 pg (26.0-34.0); MCHC 33.3 g/dL (31.0-37.0); MCV 98.8 fL (80.0-100.0); MEAN PLATELET VOLUME 9.1 fL (7.4-10.4); MONOCYTES 13.7 % (2-11); NEUTROPHILS 35.9 % (40-80); PLATELET COUNT 279 10x3/uL (130-400); RBC 4.25 10x6/uL (4.00-5.40); RDW 14.9 % (11.5-14.5); WBC 6.2 10x3/uL (4.8-10.8)
[2017-08-04 10:56] LABS: CALC OSMOLALITY 277 mosm/kg (275-300); CALCIUM 8.7 mg/dL (8.5-10.1); CARBON DIOXIDE 26.9 mmol/L (21.0-32.0); CHLORIDE - SERUM 102 mmol/L (98-107); CREATININE - SERUM 0.8 mg/dL (0.6-1.3); POTASSIUM - SERUM 3.6 mmol/L (3.5-5.1); SODIUM 139 mmol/L (136-145); UREA NITROGEN 12 mg/dL (7-18); eGFR NON AFRICAN AMERICAN 76 mL/min (90-120)
[2017-08-04 11:00] LABS: GLUCOSE 104 mg/dL (74-106)
== END 2017-08-04 17:00 | disposition home or self-care (01) ==
LOC: D.CATH 10:02
PROVIDERS: Internal Medicine Interventional Cardiology
DX: I25.119 Atherosclerotic heart disease of native coronary artery with unspecified angina pectoris (principal); T82.855A Stenosis of coronary artery stent, initial encounter; Z01.812 Encounter for preprocedural laboratory examination; Z95.1 Presence of aortocoronary bypass graft
CPT/HCPCS: 93459; C9600

== ENCOUNTER 2017-12-05 08:00 | Outpatient (CLI) | payer MEDICARE, BC ==
[2017-08-04 10:29] VITALS: BMI 30.1
[~2017-12-05 08:00] MED LIST changes: +GLUCOPHAGE500 MG PO; +LIPITOR10 MG PO
== END 2017-12-05 09:00 | disposition home or self-care (01) ==
LOC: D.MAMMO 08:00
DX: Z12.31 Encounter for screening mammogram for malignant neoplasm of breast (principal)

== ENCOUNTER 2018-01-14 10:44 | Emergency (ER) | payer MEDICARE, BC ==
[~2018-01-14] VITALS: Ht 160 cm; Wt 74.1 kg
[2018-01-14 10:49] VITALS: Ht 160 cm; Wt 74.1 kg
[2018-01-14] MEDS ORDERED: LIPITOR20 MG PO (10:54)
[2018-01-14] MEDS ORDERED: MUCINEX1200 MG/BO PO (10:54)
[2018-01-14] MEDS ORDERED: NEURONTIN 300300 MG PO (10:55)
[2018-01-14] MEDS ORDERED: LEVAQUIN500 MG PO (10:56)
[2018-01-14] MEDS ORDERED: PROMETHAZINE/CODEINE PO (10:59)
[2018-01-14 11:37] LABS: BASOPHILS 0.4 % (0-2); EOSINOPHILS 4.3 % (0-7); HEMOGLOBIN 15.6 g/dL (12-16); IMMATURE GRANULOCYTES 0.9 % (0-5); MCH 33.2 pg (26.0-34.0); MCHC 34.7 g/dL (31.0-37.0); MCV 95.7 fL (80.0-100.0); MEAN PLATELET VOLUME 9.3 fL (7.4-10.4); MONOCYTES 11.9 % (2-11); NEUTROPHILS 52.5 % (40-80); PLATELET COUNT 301 10x3/uL (130-400); RDW 13.8 % (11.5-14.5); WBC 10.3 10x3/uL (4.8-10.8)
[2018-01-14 11:48] LABS: ALBUMIN 3.4 g/dL (3.4-5.0); ANION GAP 12.6 mmol/L (8-16); BILIRUBIN - TOTAL 0.55 mg/dL (0.2-1.3); CALCIUM 8.8 mg/dL (8.5-10.1); CARBON DIOXIDE 26.7 mmol/L (21.0-32.0); CREATININE - SERUM 0.9 mg/dL (0.6-1.3); POTASSIUM - SERUM 3.3 mmol/L (3.5-5.1); PROTEIN - SERUM 7.7 g/dL (6.4-8.2); URIC ACID 5.4 mg/dL (2.6-7.2)
[2018-01-14] MEDS ORDERED: XOPENEX 1.1.25 MG/3 UPD (13:44)
[2018-01-14] MEDS ORDERED: HYDROCODON-ACE1 EAC7 PO (13:46)
[2018-01-14] MEDS ORDERED: ZITHROMAX TRI-500 MG PO (13:50)
[2018-01-14 14:02] VITALS: BP 130/72
== END 2018-01-14 14:04 | disposition home or self-care (01) ==
LOC: D.ER 10:44
PROVIDERS: Emergency Medicine
DX: R06.00 Dyspnea, unspecified (principal); J40 Bronchitis, not specified as acute or chronic; I25.810 Atherosclerosis of coronary artery bypass graft(s) without angina pectoris; E11.9 Type 2 diabetes mellitus without complications; E87.6 Hypokalemia; J44.9 Chronic obstructive pulmonary disease, unspecified; I10 Essential (primary) hypertension; F17.200 Nicotine dependence, unspecified, uncomplicated

== ENCOUNTER 2018-05-05 15:01 | Observation (INO) | payer MEDICARE, BC ==
[~2018-05-05] VITALS: Ht 160 cm; Wt 75.0 kg
--- NOTE | ~2018-05-05 | HEMODYNAMI ---
PATIENT:FORTUNATO JONES MEDICAL RECORD: [id number] : 52 [id number] ADMISSION DATE: 05/05/18 Generatedon:05/06/201812:01 Patient name: FORTUNATO JONES Patient #: [id number] SSN: [id number] : 1950 Date of study: 05/06/2018 Page: Of Hemodynamic Procedure Report Patient Data Patient Demographics Procedure consent was obtained First Name: FORTUNATO Gender: Female Last Name: ROBERT : 1950 Middle Initial: MARIA L Age: 68 year(s) Patient #: [id number] Race: SSN: [id number] Additional ID: [id number] Contact details [address]: [address] [place] [address] State: [place] City: [place] Zip code: [address] Past Medical History Allergies Allergen Reaction Date Comments Reported Other allergy 06/26/2016 tetnus, ambien, toxoid Other allergy 05/06/2018 on chart Admission Admission Data Admission Date: 05/05/2018 Admission Time: 17:10 Admit Source: Other Room #: D.2119 Procedure Procedure Types Cath Procedure Diagnostic Procedure LHC LHC w/Coronaries w/Grafts Procedure Description Procedure Date Procedure Date: 05/06/2018 Procedure Start Time: 11:47 Procedure End Time: 12:00 Procedure Staff Name Function Brayan Ying MD Performing Physician Kyle Lawrence RT Monitor Dulce Espinoza RT Scrub Victoria Car RN Nurse Procedure Data Cath Procedure Fluoroscopy Diagnostic fluoroscopy Total fluoroscopy Time: 3.9 time: 3.9 min min Diagnostic fluoroscopy Total fluoroscopy dose: 436 dose: 436 mGy mGy Contrast Material Contrast Material Type Amount (ml) Isovue 300 56 Entry Location Entry Primary Successful Side Size Upsize Upsize Entry Closure Succes sful Closure Location (Fr) 1 (Fr) 2 (Fr) Remarks Device Remarks Femoral Right 5 Fr Exoseal artery Estimated blood loss: 5 ml Diagnostic catheters Device Type Used For End Catheter Placement MULTIPACK JL 4.0 5Fr Procedure catheter MULTIPACK 3DRC 5Fr Procedure catheter MULTIPACK Pigtail 5 Fr Procedure catheter Procedure Complications No complications Procedure Medications Medication Administration Route Dosage 0.9% NaCl I.V. 100 ml/hr Oxygen etCO2 Nasal cannula 2 l/min Lidocaine 2% added to field 20 Heparin Flush Bag added to field 2 bags (1000units/500ml NS) Versed I.V. 2 mg Fentanyl I.V. 50 mcg Versed I.V. 2 mg Fentanyl I.V. 50 mcg Hemodynamics Rest Heart Rate: 71 (bpm) Pressure Samples Time Site Value (mmHg) Purpose Heart Use Rate(bpm) 11:56 LV 134/10,14 Snapshot 79 11:57 AO 130/63(86) Pullback 80 11:57 LV 135/10,14 Pullback 80 Gradients Valve Time Site 1 Site 2 Mean SEP/DFP Peak To Heart Use (mmHg) (sec/min) Peak Rate (mmHg) (bpm) Aortic 11:57 LV AO 20 18 5 80 135/10,14 130/63(86) Calculations Valve P-P Mean Valve Index Valve Source Name Gradient Area Flow (cm2) Aortic 5 20 5 20 Snapshots Pre Cath Intra NCS Post Cath Vital Signs Time Heart Resp SPO2 etCO2 NIBP (mmHg) Rhythm Pain Sedation Rate (ipm) (%) (mmHg) Status Level (bpm) 11:34:50 64 16 97 38.9 150/76(132) NSR 0 (11) 10(A) , No pain 11:39:19 71 10 100 35.2 132/52(105) NSR 0 (11) 10(A) , No pain 11:43:37 71 12 97 29.2 140/68(114) NSR 0 (11) 10(A) , No pain 11:48:40 70 11 99 35.2 134/63(101) NSR 0 (11) 10(A) , No pain 11:52:52 76 12 97 18 133/76(119) NSR 0 (11) 10(A) , No pain 11:57:10 80 10 96 30.7 119/67(108) NSR 0 (11) 10(A) , No pain Medications Time Medication Route Dose Verified Delivered Reason Notes Eff ectiveness by by 11:35:29 0.9% NaCl I.V. 100 Brayan Victoria used for ml/hr [place] Josep procedure RN 11:35:36 Oxygen etCO2 2 Brayan Floresa used for Nasal l/min [facility] procedure cannula RN 11:35:41 Lidocaine 2% added 20ml Brayan Schmidt for local to vial [facility] anesthetic field MD CURRY 11:35:46 Heparin Flush added 2 Brayan Schmidt used for Bag to bags [facility] procedure (1000units/500ml field MD CURRY NS) 11:44:59 Versed I.V. 2 mg Brayan Victoria for DeonnaArpan Car sedation MD PENN 11:45:05 Fentanyl I.V. 50 Brayan Winteryla for mcg DeonnaArpan Car sedation MD PENN 11:52:07 Versed I.V. 2 mg Brayan Victoria for DeonnaArpan Car sedation MD PENN 11:52:11 Fentanyl I.V. 50 Brayan Victoria for mcg Deonna Josep sedation brand marketing coordinator Log Time Note 11:09:21 Informed consent obtained and on chart 11:09:23 Admit Source: Other 11:09:34 Diagnostic Cath status Elective 11:09:35 Dulce Espinoza RT(R) sent for patient. Start room use. 11:09:36 Time tracking: Call back (After hours or weekends) 11:09:40 Plan of Care:Hemodynamics will remain stable., Cardiac rhythm will remain stable., Comfort level will be maintained., Respiratory function will remain adequate., Patient/ family verbilizes understanding of procedure., Procedure tolerated without complication., Recovers from procedure without complications.. 11:28:15 Patient received from Med II to [facility] 2 Alert and oriented. Tansferred to table in Supine position. 11:28:17 Warm blankets applied, and manny hugger turned on for patient comfort. 11:28:18 Correct patient and procedure confirmed by team. 11:28:18 ECG and BP/O2 sat monitors applied to patient. 11:33:43 Vital chart was started 11:35:29 0.9% NaCl 100 ml/hr I.V. was administered by Victoria Car RN; used for procedure; 11:35:36 Oxygen 2 l/min etCO2 Nasal cannula was administered by Victoria Car RN; used for procedure; 11:35:41 Lidocaine 2% 20ml vial added to field was administered by Brayan Ying MD; for local anesthetic; 11:35:46 Heparin Flush Bag (1000units/500ml NS) 2 bags added to field was administered by Brayan Ying MD; used for procedure; 11:35:50 Baseline sample Acquired. 11:42:41 Rhythm: sinus rhythm 11:42:43 Full Disclosure recording started 11:42:46 H&P Date Dictated: 05/06/2018 Within 30 days and on chart.. 11:42:48 Pre-procedure instructions explained to patient. 11:42:48 Pre-op teaching completed and patient verbalized understanding. 11:42:50 Family unavailable. 11:42:51 Patient NPO since Midnight. 11:43:05 Patient allergic to Other allergyon chart 11:43:07 Is the patient allergic to Iodine/contrast media? No. 11:43:09 Is patient on blood thinner?Yes 11:43:13 ACC The patient was administered the following blood thiners within the last 24 hours: ACCEffient 11:43:15 Patient diabetic? No. 11:43:17 Previous problem with sedation/anesthesia? No ? 11:43:20 Snore? Yes 11:43:21 Sleep apnea? No 11:43:22 Deviated septum? No 11:43:22 Opens mouth fully? Yes 11:43:23 Sticks out tongue? Yes 11:43:28 Airway obstruction? Yes COPD 11:43:39 Dentures? Yes UPPER JOSEPHINE LOWER IN TIGHT 11:43:49 Pre procedure: right dorsailis pedis pulse 2+ Normal; easily identifiable; not easily obliterated 11:43:52 Patient pain scale 0/10 ?. 11:44:03 IV patent on arrival in left wrist with 0.9% NaCl at KVO. 11:44:05 Lab results completed and on chart. 11:44:07 Right groin area was prepped with chlora-prep and draped in sterile fashion 11:44:08 Alarms reviewed by R. N. 11:44:08 Sharps counted by scrub and verified by R.N. 11:44:10 Use device set Femoral Dx 11:44:11 ACIST Syringe (54433) opened to sterile field. 11:44:12 Bag Decanter (2002) opened to sterile field. 11:44:12 Medline Cath Pack ([id number]) opened to sterile field. 11:44:13 DIAGNOSTIC WIRE .035 260cm J wire (068601) opened to sterile field. 11:44:14 ACIST Hand Control (43364) opened to sterile field. 11:44:14 ACIST Manifold (72599) opened to sterile field. 11:44:16 Tegaderm 4 x 4 (1626W) opened to sterile field. 11:44:16 SHEATH 5FR [place] (YLO203) opened to sterile field. 11:44:17 DIAGNOSTIC Multipack 5Fr catheter set ([id number]) opened to sterile field. 11:44:23 Physician arrived 11:44:23 --------ALL STOP TIME OUT------ 11:44:24 Final Timeout: patient, procedure, and site verified with staff and physician. All members of the team are in agreement. 11:44:25 Right groin site verified by team. 11:44:27 Physical assessment completed. ASA score P 2 - A patient with mild systemic disease as per Brayan Ying MD. 11:44:29 Sedation plan: IV Moderate Sedation Medication:Versed, Fentanyl 11:44:59 Versed 2 mg I.V. was administered by Victoria Car RN; for sedation; 11:45:05 Fentanyl 50 mcg I.V. was administered by Victoria Car RN; for sedation; 11:47:06 Procedure started. 11:47:09 Local anesthetic to right femoral artery with Lidocaine 2% by Brayan Ying MD.INITIAL ACCESS ONLY 11:47:16 A 5 Fr sheath was inserted into the Right Femoral artery 11:47:20 Zero performed for pressure channel P1 11:49:29 A MULTIPACK JL 4.0 5Fr catheter was advanced over the wire and used for Procedure. 11:50:54 LCA angiography performed. 11:51:31 Catheter exchanged over wire. 11:51:36 A MULTIPACK 3DRC 5Fr catheter was advanced over the wire and used for Procedure. 11:52:07 Versed 2 mg I.V. was administered by Victoria Car RN; for sedation; 11:52:11 Fentanyl 50 mcg I.V. was administered by Victoria Car RN; for sedation; 11:54:03 RCA angiography performed. 11:54:14 SVG to Circ angiography performed. 11:54:56 Catheter exchanged over wire. 11:55:00 A MULTIPACK Pigtail 5 Fr catheter was advanced over the wire and used for Procedure. 11:55:01 EXOSEAL 5Fr (EX500) opened to sterile field. 11:56:17 LV gram done using OBRIEN 11:56:22 Injector settings: Ml/sec: 10, Volume: 20, 11:56:25 LV hemodynamics recorded. 11:57:04 EF : 55 % 11:57:09 Catheter removed. 11:57:15 Sheath removed intact; hemostasis achieved with Exoseal to the Right Femoral artery. 11:57:17 Procedure ended.(Physican Out) 11:58:58 Fluoroscopy time 03.90 minutes. 11:59:02 Flurop Dose total: 436 11:59:02 Fluoroscopy dose: 436 mGy 11:59:07 Contrast amount:Isovue 300 56ml. 11:59:39 Sharps counted by scrub and verified by R.N. 11:59:42 Insertion/operative site no bleeding no hematoma. 11:59:45 Post-op/insertion site Right Femoral artery dressed using a 4 x 4 and Tegaderm. 11:59:50 Post right femoral artery:stable, soft, clean and dry 11:59:52 Post Procedure Pulses reassessed and unchanged 11:59:55 Post-procedure physical assessment completed. ASA score P 2 - A patient with mild systemic disease as per Brayan Ying MD. 11:59:56 Post procedure rhythm: unchanged. 11:59:59 Estimated blood loss: 5 ml 12:00:00 Post procedure instruction explained to patient.Patient verbalizes understanding. 12:00:00 Patient needs reinforcement of post procedure teaching. 12:00:09 Procedure type changed to Cath procedure, Diagnostic procedure, LHC, LHC w/Coronaries w/Grafts 12:00:22 Procedure and supply charges have been captured, reviewed, submitted and are correct. 12:00:24 Procedure Complication : No complications 12:00:27 Vital chart was stopped 12:00:27 See physician's report for complete and final results. 12:00:29 Report given to PCU. 12:00:31 Patient transfered to PCU with Stretcher. 12:00:34 Procedure ended. 12:00:34 Full Disclosure recording stopped 12:00:37 End room use (Document Last) Device Usage Item Name Manufacture Quantity Catalog Hospital Part Current Minimal L ot# / Number Charge Number Stock Stock Serial# Code ACIST Acist 1 61748 335449 596492 611366 20 Syringe Medical (48303) Systems Inc Bag Microtek 1 2001S 378518 04446 487005 5 Decanter Medical Inc. () Medline Medline 1 [id number] 977872 53385 244318 5 Cath Pack ([id number]) DIAGNOSTIC [facility]ic 1 518528 491509 972409 022066 30 WIRE .035 260cm J wire (591020) ACIST Hand Acist 1 36965 307570 586859 159979 5 Control Medical (27212) Systems Inc ACIST Acist 1 75062 819201 465030 921877 5 Manifold Medical (19366) Systems Inc Tegaderm 4 3M 1 1626W 343455 662432 552457 5 x 4 (1626W) SHEATH 5FR Terumo 1 HUH919 265318 959099 516749 5 [place] (SWV388) DIAGNOSTIC Cardinal 1 QO9175 991759 75855 146994 30 Multipack Health 5Fr catheter set (KZ9071) MULTIPACK Cardinal 1 910297 5 JL 4.0 5Fr Health catheter MULTIPACK Cardinal 1 880624 5 3DRC 5Fr Health catheter MULTIPACK Cardinal 1 256831 5 Pigtail 5 Health Fr catheter EXOSEAL 5Fr Cardinal 1 EX500 007358 510297 735517 10 (EX500) Health Signature Audit [place] Stage Time Signature Unsigned Intra-Procedure 05/06/2018 Kyle Lawrence 12:01:50 PM RT(R) Signatures Monitor : Kyle Lawrence RT Signature : Date : Time : [facility] [address] [place] [address]
--- NOTE | ~2018-05-05 | MORECARE ---
CASE MANAGEMENT DISCHARGE SUMMARY PATIENT: FORTUNATO JONES UNIT: [id number] ADM DATE: 05/05/18 AGE: 68 : 51 SEX: F ROOM/BED: D.5151 AUTHOR: JARON LOPEZ PHYSICIAN: REFERRING PHYSICIAN: DWAINE VENEGAS MD DATE OF SERVICE: 05/08/18 Discharge Plan Patient Name: FORTUNATO JONES [facility] : 1950 Planned Disposition: Home Anticipated Discharge Date: 05/06/18 Discharge Date: 05/06/2018 Expected LOS: 1 Initial Reviewer: [email or web address] Initial Review Date: 05/08/2018 Generated: 05/08/18 12:27 pm Patient Name: FORTUNATO JONES Page 13823 at 1127 All edits/amendments must be made on the electronic document DICTATION DATE: 05/08/18 1126 HUMAN RESOURCE MANAGEMENT INSTRUCTOR: AYDEN 05/08/18 112 RPT#: [id number] DC DATE:05/06/18 [facility]US: [facility] [address] [place] [address] END OF REPORT
--- NOTE | ~2018-05-05 | CN ---
PATIENT NAME:FORTUNATO JONES MEDICAL RECORD: [id number] : 52 LOCATION:D.M2 D.2119 ADMIT DATE: 05/05/18 ACCOUNT: [id number] CONSULTING PHYSICIAN: SRINIVASA RODRÍGUEZ MD REFERRING PHYSICIAN: DWAINE VENEGAS MD DATE OF CONSULTATION: 05/06/2018 HISTORY OF PRESENT ILLNESS: A 68-year-old female with known history of coronary artery disease, ongoing tobacco use with her typical anginal over the past 2-3 days, nocturnal, waking up at night, relieved with nitroglycerin 2 nights prior to admission. Last night, tried 3 nitro with no relief of typical chest tightness, pressure, admitted for unstable angina/acute coronary syndrome. PAST MEDICAL HISTORY: Includes: 1. History of hypertension. 2. Hyperlipidemia. 3. Coronary disease as described above. MEDICATIONS: Typically include Effient 10 mg p.o. daily, atorvastatin 20 mg p.o. day, nitroglycerin p.r.n., Neurontin 600 at bedtime, Nexium 40 every day. SOCIAL HISTORY: She does smoke. Nondrinker. No set exercise program. Easily takes care of all her ADLs ALLERGIES: INCLUDE DIPHTHERIA AND TETANUS TOXOID, PRAVASTATIN, AMBIEN AND VOLTAREN. REVIEW OF SYSTEMS: The patient reports easy bruising but reports no swollen glands. The patient reports no fever, no night sweats, no significant weight gain, no significant weight loss. No significant exercise tolerance. The patient reports no dry eyes, no irritation, no vision change. Patient reports no difficulty hearing and no ear pain. Patient reports no frequent nose bleeds or nose and sinus problems. Patient reports on arm pain on exertion. No shortness of breath while lying down. No history of heart murmur. Patient reports no cough, no wheezing or coughing up blood. Patient reports no abdominal pain, no vomiting. Normal appetite. No diarrhea and not vomiting blood. No nausea and no constipation. Patient reports no incontinence. No difficulty urinating. No hematuria. No increased frequency. Patient reports no muscle aches. No weakness, no arthralgias, no back pain. No swelling of the extremities. Patient reports no abnormal mole, no jaundice, no rashes. Reports no loss of consciousness. No weakness and no numbness. No seizures, dizziness, or headaches. The patient reports no depression, no sleep disturbance, feeling safe in a relationship and no alcohol abuse. Patient reports on fatigue. Reports no runny nose or sinus pressure. No itching, no hives, and no frequent sneezing. PHYSICAL EXAMINATION: GENERAL: Pleasant female in no acute distress, appears stated age. VITAL SIGNS: Blood pressure 105/51, pulse 70 and regular. HEENT: Normocephalic, atraumatic. NECK: Soft, right carotid bruit. LUNGS: Good air excursion. HEART: Regular, II/ systolic ejection murmur. ABDOMEN: Soft, nontender. EXTREMITIES: Pulse is well preserved, 2+. There is no edema. CONSULT REPORT [id number] FORTUNATO JONES DIAGNOSTIC DATA: ECG shows nonspecific ST-T changes inferolaterally with anterior T-wave inversion. IMPRESSION: Acute coronary syndrome. No history of coronary artery disease with a window for restenosis. PLAN: Angiography, intervention based on above. TRANSINT:[id number] Voice Confirmation ID: [id number] DOCUMENT ID: [id number] SRINIVASA RODRÍGUEZ MD CC: [id number] DICTATION DATE: 05/06/18903 SERVICENOW ADMINISTRATOR: 05/06/18 1154 ADM IN [facility] [address] [place] [id number]
--- NOTE | ~2018-05-05 | OP ---
PATIENT NAME: FORTUNATO JONES MEDICAL RECORD: [id number] :52 LOCATION:D.M2 D.2119 ADMISSION DATE:05/05/18 SURGEON: SRINIVASA RODRÍGUEZ MD DATE OF OPERATION: 05/06/2018 PROCEDURE: Left heart catheterization, selective coronary angiography, right femoral artery approach. CATHETERS: A 5-Lithuanian sheath, 5/4 left and right Jose, 5/4 pig. The procedure was well tolerated. The patient returned to the eid, sheath removed. ExoSeal device placed. FINDINGS: Left ventriculography in 30-degree OBRIEN view, normal wall motion and normal systolic function. CORONARY ANATOMY: LEFT MAIN: Left main is free of disease. LAD: Area of previous stenting is widely patent with no evidence of restenosis. No progression of [place] disease. CIRCUMFLEX: Totally occluded. RIGHT CORONARY ARTERY: Nondominant right, free of disease. SAPHENOUS GRAFT: Saphenous vein graft to circumflex a large graft. This fills an OM, the true circ as well as the PDA coming off the cervix all with no evidence of post-anastomotic stenosis, good runoff vessels. TRANSINT:[id number] Voice Confirmation ID: [id number] DOCUMENT ID: [id number] SRINIVASA RODRÍGUEZ MD CC: [id number] DICTATION DATE: 05/06/18 1203 INSURANCE BROKER: 05/06/18 1701 ADM IN [facility] [address] [place] [address]
[~2018-05-05 15:01] MED LIST changes: +HYDROCODON-ACE1 EAC7 PO; +LEVAQUIN500 MG PO; +LIPITOR20 MG PO; +MUCINEX1200 MG/BO PO; +NEURONTIN 300300 MG PO; +PROMETHAZINE/CODEINE PO; +XOPENEX 1.1.25 MG/3 UPD; +ZITHROMAX TRI-500 MG PO
[2018-05-05 15:45] LABS: BASOPHILS 0.6 % (0-2); EOSINOPHILS 4.2 % (0-7); HEMATOCRIT 43.1 % (36.0-48.0); IMMATURE GRANULOCYTES 0.1 % (0-5); LYMPHOCYTES 44.2 % (15-50); MCH 33.5 pg (26.0-34.0); MCHC 34.8 g/dL (31.0-37.0); MCV 96.2 fL (80.0-100.0); MEAN PLATELET VOLUME 9.2 fL (7.4-10.4); MONOCYTES 9.5 % (2-11); NEUTROPHILS 41.4 % (40-80); PLATELET COUNT 268 10x3/uL (130-400); RBC 4.48 10x6/uL (4.00-5.40); RDW 13.6 % (11.5-14.5); WBC 7.2 10x3/uL (4.8-10.8)
[2018-05-05 15:59] LABS: APTT 26.6 SECONDS (22.8-39.4); INR 0.95 (0.85-1.17); PROTIME 12.2 SECONDS (11.6-15.0)
[2018-05-05 16:09] LABS: ALBUMIN 3.3 g/dL (3.4-5.0); ALKALINE PHOSPHATASE 101 U/L (46-116); ALT (SGPT) 28 U/L (10-68); BILIRUBIN - TOTAL 0.16 mg/dL (0.2-1.3); CALC OSMOLALITY 283 mosm/kg (275-300); CARBON DIOXIDE 23.4 mmol/L (21.0-32.0); CHLORIDE - SERUM 105 mmol/L (98-107); CREATININE - SERUM 0.8 mg/dL (0.6-1.3); GLUCOSE 136 mg/dL (74-106); PROTEIN - SERUM 6.9 g/dL (6.4-8.2); SODIUM 141 mmol/L (136-145); UREA NITROGEN 15 mg/dL (7-18); eGFR NON AFRICAN AMERICAN 76 mL/min (90-120)
[2018-05-05 16:20] LABS: CKMB 0.6 U/L (0.0-3.6); CREATINE KINASE 58 UL (21-215); MAGNESIUM - SERUM 1.7 mg/dL (1.8-2.4); TROPONIN-I < 0.017 ng/mL (0.000-0.060)
[2018-05-05 23:46] VITALS: BP 110/55; Ht 160 cm; Wt 75.0 kg
[2018-05-05 23:55] VITALS: BP 111/55
[2018-05-06 03:45] VITALS: BP 106/53
[2018-05-06 08:46] VITALS: BP 108/51
[2018-05-06 09:05] LABS: BASOPHILS 0.7 % (0-2); EOSINOPHILS 5.2 % (0-7); HEMATOCRIT 43.1 % (36.0-48.0); HEMOGLOBIN 14.3 g/dL (12-16); IMMATURE GRANULOCYTES 0.3 % (0-5); LYMPHOCYTES 44.4 % (15-50); MCH 32.9 pg (26.0-34.0); MCHC 33.2 g/dL (31.0-37.0); MEAN PLATELET VOLUME 9.5 fL (7.4-10.4); MONOCYTES 12.8 % (2-11); NEUTROPHILS 36.6 % (40-80); PLATELET COUNT 271 10x3/uL (130-400); RBC 4.35 10x6/uL (4.00-5.40); RDW 13.9 % (11.5-14.5); WBC 6.7 10x3/uL (4.8-10.8)
[2018-05-06 09:07] LABS: MCV 99.1 fL (80.0-100.0)
[2018-05-06 09:08] LABS: CALC OSMOLALITY 285 mosm/kg (275-300); CALCIUM 8.4 mg/dL (8.5-10.1); CARBON DIOXIDE 28.7 mmol/L (21.0-32.0); CHLORIDE - SERUM 107 mmol/L (98-107); CREATININE - SERUM 0.8 mg/dL (0.6-1.3); GLUCOSE 91 mg/dL (74-106); POTASSIUM - SERUM 4.4 mmol/L (3.5-5.1); SODIUM 143 mmol/L (136-145); UREA NITROGEN 15 mg/dL (7-18); eGFR NON AFRICAN AMERICAN 76 mL/min (90-120)
[2018-05-06 14:51] VITALS: BP 108/65
== END 2018-05-06 15:25 | disposition home or self-care (01) ==
LOC: D.ER 15:01 → D.EDHOLD 17:10 → OBSVTIME 17:10 → D.M2 17:23
PROVIDERS: Family Medicine; Internal Medicine Interventional Cardiology
DX: I25.119 Atherosclerotic heart disease of native coronary artery with unspecified angina pectoris (principal); Z95.1 Presence of aortocoronary bypass graft; Z95.5 Presence of coronary angioplasty implant and graft; F17.213 Nicotine dependence, cigarettes, with withdrawal; K21.9 Gastro-esophageal reflux disease without esophagitis; J44.9 Chronic obstructive pulmonary disease, unspecified; E11.65 Type 2 diabetes mellitus with hyperglycemia; E11.40 Type 2 diabetes mellitus with diabetic neuropathy, unspecified; E78.5 Hyperlipidemia, unspecified; I10 Essential (primary) hypertension

== ENCOUNTER → 2018-05-22 16:49 | Outpatient (CLI) | payer MEDICARE, BC ==
[2018-05-05 23:46] VITALS: BMI 29.2
== END | disposition home or self-care (01) ==
LOC: D.CT 16:49
DX: R93.89 Abnormal findings on diagnostic imaging of other specified body structures (principal); H54.40 Blindness, one eye, unspecified eye

== ENCOUNTER 2018-06-23 11:45 | Inpatient (IN) | payer MEDICARE, BC ==
[~2018-06-23] VITALS: Ht 160 cm; Wt 82.1 kg
[~2018-06-23 11:45] MED LIST changes: +NEXIUM20 MG PO; +PLAVIX75 MG PO
[2018-06-27] MEDS ORDERED: ANORO ELLIPTA1 EACH INH (09:07)
[2018-06-27] MEDS ORDERED: LOPRESSOR25 MG PO (09:09)
[2018-06-27 10:32] LABS: HEMATOCRIT 42.7 % (36.0-48.0); HEMOGLOBIN 14.4 g/dL (12-16); MCH 32.1 pg (26.0-34.0); MCHC 33.7 g/dL (31.0-37.0); MCV 95.3 fL (80.0-100.0); MEAN PLATELET VOLUME 9.2 fL (7.4-10.4); RBC 4.48 10x6/uL (4.00-5.40); RDW 13.6 % (11.5-14.5); WBC 7.4 10x3/uL (4.8-10.8)
[2018-06-27 10:34] LABS: APPEARANCE CLEAR (CLEAR); BILIRUBIN NEGATIVE (NEGATIVE); COLOR YELLOW (YELLOW); GLUCOSE NEGATIVE (NEGATIVE); KETONE NEGATIVE (NEGATIVE); NITRITE NEGATIVE (NEGATIVE); PROTEIN NEGATIVE (NEGATIVE); SPECIFIC GRAVITY 1.015 (1.005-1.020); UROBILINOGEN NORMAL (NORMAL)
[2018-06-27 10:43] LABS: APTT 26.9 SECONDS (22.8-39.4); INR 0.9 (0.85-1.17); PROTIME 11.7 SECONDS (11.6-15.0)
[2018-06-27 10:51] LABS: ALBUMIN 3.4 g/dL (3.4-5.0); ALKALINE PHOSPHATASE 104 U/L (46-116); ALT (SGPT) 36 U/L (10-68); BILIRUBIN - TOTAL 0.23 mg/dL (0.2-1.3); CALC OSMOLALITY 274 mosm/kg (275-300); CALCIUM 8.5 mg/dL (8.5-10.1); CARBON DIOXIDE 27.6 mmol/L (21.0-32.0); CHLORIDE - SERUM 102 mmol/L (98-107); CREATININE - SERUM 0.8 mg/dL (0.6-1.3); GLUCOSE 94 mg/dL (74-106); POTASSIUM - SERUM 4.1 mmol/L (3.5-5.1); PROTEIN - SERUM 7.2 g/dL (6.4-8.2); SODIUM 138 mmol/L (136-145); UREA NITROGEN 9 mg/dL (7-18); eGFR NON AFRICAN AMERICAN 76 mL/min (90-120)
[2018-06-29] VITALS (18 sets, daily range): BP systolic 90–134; BP diastolic 44–70; Ht 160 cm; Wt 82.1 kg
[2018-06-30] VITALS (7 sets, daily range): BP systolic 116–136; BP diastolic 46–56
--- NOTE | 2018-06-30 01:48 | NUR ---
1930- REPORT RECEIVED, ASSESSMENT PER FLOW SHEET, PT RESTING IN BED, FAMILY AT BEDSIDE, VSS, HOB ELEVATED PER ORDERS, ICE PLACED PER ORDERS, PT TOLLERATING WELL WITH NO S/S OF ACUTE DISTRESS, WILL CONTINUE TO ASSSESS 2100- PT RESTING, WAKES TO VERBAL STEMULI AND IS ALERT AND ORRIENTED, SMALL SIPS OF H2O, NO S/S OF ACUTE DISTRESS, MEDS GIVEN PER JUL, VSS 2300- REASSSESSMENT COMPLETED, NO ACUTE CHANGE OR DISTRESS NOTED, PT REPOSITIONED WITH ASSIST, WILL CONTINUE TO MONITOR 0100- PT SLEEPING, WAKES WITH VERBAL STEMULI, AAOx4, SIPS OF H2O, I/S COMPLETED, VSS, WILL CONTINUE TO ASSESS
--- NOTE | 2018-06-30 12:05 | OP ---
PATIENT NAME: FORTUNATO JONES MEDICAL RECORD: [id number] :52 LOCATION:DGIOVANNI DNathanCV04 ADMISSION DATE:06/29/18 SURGEON: ADAMS DELA CRUZ MD DATE OF OPERATION: 06/29/2018 SURGEON: Adams Dela Cruz MD FRANCHISE CONSULTANT: Laron Lorenzo. OPERATION PERFORMED: Right carotid endarterectomy. PREOPERATIVE DIAGNOSIS: Right carotid stenosis. POSTOPERATIVE DIAGNOSIS: Right carotid stenosis. ANESTHESIA: General endotracheal anesthesia. ESTIMATED BLOOD LOSS: 50 cc. SPECIMENS: Plaque. COMPLICATIONS: None. CONDITION: Stable. DISPOSITION: CV ICU. OPERATIVE FINDINGS: 1. Severely calcified and moderately ulcerated plaque in the carotid bulb and proximal internal carotid artery that feathered well distally, CorMatrix patch closure. 2. Neurologically intact to CV ICU. OPERATIVE INDICATION: Severe right internal carotid artery stenosis. OPERATIVE SUMMARY: The patient was brought to the operating suite. General anesthesia was obtained. The patient was prepped and draped. An oblique incision made in the right neck. Incision was taken down through the platysma, working superiorly. The common carotid artery, external carotid thyroid branch and internal carotid were dissected out. The ansa was divided between clips. The hypoglossal nerve was kept out of harm's way. Heparin was given. After the heparin had circulated, back bleeding was controlled, the internal carotid and inflow with a vascular clamp. Then, the external carotid and thyroid branch controlled with vessel loops. Arteriotomy was begun after 2 minutes of clamping and normal EEG. The arteriotomy was taken out through the region of dense calcification into a relatively normal region of the internal carotid. The endarterectomy was begun in the common carotid artery where the plaque was divided with an eversion endarterectomy of the severely calcified plaque of the external carotid and the plaque feathered well distally. Thorough irrigation was undertaken. All bits of loose debris were removed. A CorMatrix patch was fashioned to appropriate size and sutured along the edge of the arteriotomy. Prior to completing the anastomosis, backbleeding was allowed from all 3 major vessels. Then, the plaque bed was again thoroughly irrigated. The anastomosis was completed and flow restored, first to the external carotid and then to the internal carotid. Interrupted sutures were used for hemostasis. Protamine was OPERATIVE REPORT [id number] FORTUNATO JONES given. Thorough irrigation was undertaken and hemostasis was ensured. A drain was placed through a separate stab wound. Wound was then closed with muscle layers, platysma subcuticular and Dermabond. The patient was neurologically intact after reversal of anesthesia and taken to the CV ICU. TRANSINT:[id number] Voice Confirmation ID: [id number] DOCUMENT ID: [id number] ADAMS DELA CRUZ MD at 1205 CC: LETICIA MARTINEZ MD [id number] DICTATION DATE: 06/29/181712 WRAPPER SELECTOR: 06/29/182011 ADM IN [facility] [address] [place] [address]
--- NOTE | 2018-06-30 13:23 | NUR ---
L RADIAL ART LINE DCD. PRESSURE HELD DSNG APPLIED. NO BLEEDING NO HEMATOMA. FROST CATH DCD. PT OOB TO CHAIR FOR MEALS. WALKED PEREZ WITH PT.
[2018-06-30 13:46] LABS: BASOPHILS 0.3 % (0-2); EOSINOPHILS 0.9 % (0-7); HEMATOCRIT 38.9 % (36.0-48.0); HEMOGLOBIN 12.9 g/dL (12-16); IMMATURE GRANULOCYTES 0.3 % (0-5); LYMPHOCYTES 19.4 % (15-50); MCH 32.1 pg (26.0-34.0); MCHC 33.2 g/dL (31.0-37.0); MCV 96.8 fL (80.0-100.0); MONOCYTES 9.4 % (2-11); NEUTROPHILS 69.7 % (40-80); PLATELET COUNT 232 10x3/uL (130-400); RBC 4.02 10x6/uL (4.00-5.40); RDW 13.9 % (11.5-14.5); WBC 10.9 10x3/uL (4.8-10.8)
[2018-06-30 13:54] LABS: ANION GAP 12.4 mmol/L (8-16); CALCIUM 7.9 mg/dL (8.5-10.1); CARBON DIOXIDE 28.3 mmol/L (21.0-32.0); CREATININE - SERUM 0.9 mg/dL (0.6-1.3); POTASSIUM - SERUM 3.7 mmol/L (3.5-5.1)
[2018-06-30] MEDS ORDERED: ULTRAM50 MG PO (14:10)
--- NOTE | 2018-06-30 14:21 | NUR ---
DIANA DRAIN DCD. SOFIA AT BS WITH DC INSTRUCTIONS.
--- NOTE | 2018-06-30 16:45 | NUR ---
DC INSTRUCTIONS GIVEN. PT DC WITH DAUGHTER.
--- NOTE | 2018-06-30 18:21 | MORECARE ---
CASE MANAGEMENT DISCHARGE SUMMARY PATIENT: FORTUNATO JONES UNIT: [id number] ADM DATE: 06/29/18 AGE: 68 : 51 SEX: F ROOM/BED: [facility] AUTHOR: JARON LOPEZ PHYSICIAN: REFERRING PHYSICIAN: DAVID DELA CRUZ MD DATE OF SERVICE: 06/30/18 Discharge Plan Patient Name: FORTUNATO JONES Facility: [facility]:[place] : 1950 Planned Disposition: Home Anticipated Discharge Date: Discharge Date: 06/30/2018 Expected LOS: Initial Reviewer: [email or web address] Initial Review Date: 06/30/2018 Generated: 06/30/18 7:21 pm Patient Name: FORTUNATO JONES Page 46815 at 1821 All edits/amendments must be made on the electronic document DICTATION DATE: 06/30/181820 PAINT TESTER: AYDEN 06/30/181820 RPT#: [id number] DC DATE:06/30/18 STATUS: DIS IN [facility] [address] [facility] [address] END OF REPORT
--- NOTE | 2018-06-30 18:28 | MORECARE ---
CASE MANAGEMENT DISCHARGE SUMMARY PATIENT: FORTUNATO JONES UNIT: [id number] ADM DATE: 06/29/18 AGE: 68 : 52 SEX: F ROOM/BED: [facility] AUTHOR: JOHN,DOC PHYSICIAN: REFERRING PHYSICIAN: DAVID DELA CRUZ MD DATE OF SERVICE: 06/30/18 Discharge Plan Patient Name: FORTUNATO JONES Facility: [facility]:[place] : 1950 Planned Disposition: Home Anticipated Discharge Date: Discharge Date: 06/30/2018 Expected LOS: Initial Reviewer: [email or web address] Initial Review Date: 06/30/2018 Generated: 06/30/18 7:28 pm Comments DCP- Discharge Planning Updated by [email or web address]: Brandi Roberts on 06/30/18 5:[address] LATE ENTRY 06/30/18 @ 1500 Patient Name: FORTUNATO JONES Admission Status: Elective Accout number: [id number] Admission Date: 06-29-2018 : 1950 Admission Diagnosis:OCCLUSION AND STENOSIS OF RIGHT CAROTID ARTERY Attending: DAVID DELA CRUZ Current LOS: 1 Anticipated DC Date: Planned Disposition: Home Primary Insurance: MEDICARE A & B Discharge Planning Comments: CM met with patient at bedside. Patient states she live at home with her and plans to return to their home upon discharge. Patient denies any discharge needs at this time. d/c IMM explained and served 06/30/18 @ 1515. CM will continue to follow and assist as needed with discharge planning / needs. Warp Knitter: Brandi Roberts DCPIA - Discharge Planning Initial Assessment Updated by [email or web address]: Brandi Roberts on 06/30/18 6:21 pm * Is the patient Alert and Oriented? Yes * How many steps to enter\exit or inside your home? RAMP * PCP JUAN * Pharmacy [facility] * Preadmission Environment Home with Family * ADLs Independent * Equipment None * List name and contact numbers for known caregivers / representatives who currently or will assist patient after discharge: DARYN JONES - [phone] * Verbal permission to speak to the caregivers and representatives has been obtained from the patient. N/A * Community resources currently utilized None * Additional services required to return to the preadmission environment? No * Can the patient safely return to the preadmission environment? Yes * Has this patient been hospitalized within the prior 30 days at any hospital? No Coverage Notice Reviewer: [email or web address] Ivy Roberts Notice Issued Date-Time: 06/30/2018 15:15 Notice Type: IM Discharge Notice Notice Delivered To: Patient Relationship to Patient: Self Smoke Jumper Name: Delivery Method: HAND - Hand Delivered Mervat Days: Prior Verbal Notification: Recipient Understood Notice: Yes Recipient Signature: Yes Med Rec Note Co-signed by Attending: Coverage Notice Comment: Last DP export: 06/30/18 5:21 pm Patient Name: FORTUNATO JONES Page [id number] at 1828 All edits/amendments must be made on the electronic document DICTATION DATE: 06/30/181827 INTEGRATED CIRCUITS INSPECTOR: AYDEN 06/30/181827 RPT#: [id number] DC DATE:06/30/18 STATUS: [facility] [address] [place] [address] END OF REPORT
== END 2018-06-30 16:30 | disposition home or self-care (01) | DRG 39 ==
LOC: D.SDCHOLD 06-29 07:30 → D.CVICU 06-29 09:15 → D.SDCHOLD 06-29 09:15 → D.CVICU 06-29 15:53
PROVIDERS: ADMIT Thoracic Surgery (Cardiothoracic Vascular Surgery)
PROC: 03UK0JZ Supplement Right Internal Carotid Artery with Synthetic Substitute, Open Approach (ICD-10-PCS; 2018-06-29)
PROC: 03CK0ZZ Extirpation of Matter from Right Internal Carotid Artery, Open Approach (ICD-10-PCS; principal; 2018-06-29 13:30)
DX: I65.21 Occlusion and stenosis of right carotid artery (principal)

== ENCOUNTER → 2018-07-24 07:49 | Outpatient (CLI) | payer MEDICARE, BC ==
[2018-06-29 17:44] VITALS: BMI 30.8
[~2018-07-24 07:49] MED LIST changes: +ANORO ELLIPTA1 EACH INH; +ULTRAM50 MG PO
== END | disposition home or self-care (01) ==
LOC: D.US 07:49
PROVIDERS: ATTEND Thoracic Surgery (Cardiothoracic Vascular Surgery)
DX: I65.22 Occlusion and stenosis of left carotid artery (principal)

== ENCOUNTER → 2019-01-16 12:40 | Outpatient (CLI) | payer MEDICARE, BC ==
[2018-06-29 17:44] VITALS: BMI 30.8
== END | disposition home or self-care (01) ==
LOC: D.US 12:40
PROVIDERS: ATTEND Thoracic Surgery (Cardiothoracic Vascular Surgery)
DX: I65.23 Occlusion and stenosis of bilateral carotid arteries (principal)

== ENCOUNTER → 2019-10-23 09:36 | Outpatient (CLI) | payer MEDICARE, BC ==
[2019-07-06 14:08] VITALS: BMI 31.3
[~2019-10-23 09:36] MED LIST changes: +ELAVIL25 MG PO
== END | disposition home or self-care (01) ==
LOC: D.RAD 09:30
PROVIDERS: ATTEND Family Medicine
DX: Z12.11 Encounter for screening for malignant neoplasm of colon (principal)

== ENCOUNTER 2019-12-19 10:30 | Outpatient (CLI) | payer MEDICARE, BC ==
[2019-07-06 14:08] VITALS: BMI 31.3
== END 2019-12-19 10:31 | disposition home or self-care (01) ==
LOC: D.MAMMO 10:30
PROVIDERS: ATTEND Family Medicine
DX: Z12.31 Encounter for screening mammogram for malignant neoplasm of breast (principal)

== ENCOUNTER 2019-12-25 14:00 | Outpatient (CLI) | payer MEDICARE, BC ==
[2019-07-06 14:08] VITALS: BMI 31.3
== END 2019-12-25 15:00 | disposition home or self-care (01) ==
LOC: D.MAMMO 14:00
PROVIDERS: ATTEND Family Medicine
DX: R92.8 Other abnormal and inconclusive findings on diagnostic imaging of breast (principal)